=== PATIENT | female | born 1995 | race Caucasian/White ===

== ENCOUNTER 2016-08-12 16:54 | Emergency (ER) | payer OTHER ==
[2016-08-12 17:09] VITALS: BP 107/66
--- NOTE | 2016-08-12 18:09 | UC ---
Throat Pain/Nasal Leo HPI - HPI Summary HPI Summary: 3 day history of malaise, myalgias, fatigue. Has been spending her days in bed, with increasing cough for the past 2 days. No chest pain, chest feels tight. Has used an inhaler in the past. Smokes 1/2 ppd. - History of Current Complaint Chief Complaint: UCGeneralIllness Stated Complaint: HEADACHE/BODY ACHES/COUGH Time Seen by Provider: 08/12/16 17:47 Hx Obtained From: Patient Hx Last Menstrual Period: 3 weeks ago, nexplanon ?: No Onset/Duration: Sudden Onset, Lasting Days - 3 Pain Intensity: 8 Pain Scale Used: 0-10 Numeric Cough: Nonproductive Associated Signs & Symptoms: Positive: Hoarseness, Sinus Discomfort Related History: Smoking - Epiglottits Risk Factors Epiglottis Risk Factors: Negative - Allergies/Home Medications Allergies/Adverse Reactions: Allergies Allergy/AdvReac Type Severity Reaction Status Date / Time Shellfish-derived Products Allergy Severe SOB, DIZZY Verified 08/12/16 17:09 Adhesive Tape Allergy Intermediate SKIN SWELLS Verified 08/12/16 17:09 Latex Allergy Intermediate SWELLING , Verified 08/12/16 17:09 REDNESS AND BURNING Azithromycin [From Zithromax] Allergy Vomiting Verified 08/12/16 17:09 Home Medications: Home Medications Cetirizine* [ZyrTEC 10 MG TAB*] 10 mg PO DAILY 08/12/16 [History Confirmed 08/12] Etonogestrel IMPLANT(NF) [Implanon (NF)] 68 mg SC ONCE 08/12/16 [History Confirmed 08/12/16] PMH/Surg Hx/FS Hx/Imm Hx - Additional Past Medical History Additional PMH: chronic PID, aura migraines. Endocrine History Of: Denies: Diabetes Cardiovascular History Of: Denies: Cardiac Disorders Respiratory History Of: Reports: Asthma - exercised induced - Surgical History Surgical History: Yes Surgery Procedure, Year, and Place: GASTROSCOPE, COLONOSCOPY AFTER HAVING C- DIFF. 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 Lives: With Family - 2 daughters Alcohol Use: None Substance Use Type: None Smoking Status (MU): Heavy Every Day Tobacco Smoker Type: Cigarettes Amount Used/How Often: 1/2 PPD Length of Time of Smoking/Using Tobacco: age 11 Have You Smoked in the Last Year: Yes Household Exposure Type: Cigarettes Review of Systems Constitutional: Fatigue Skin: Negative Eyes: Negative ENT: Negative Respiratory: Cough Cardiovascular: Negative Gastrointestinal: Negative Genitourinary: Negative Motor: Negative Neurovascular: Negative Musculoskeletal: Myalgia Neurological: Headache - This headache is not typical of her migraines. Psychological: Negative All Other Systems Reviewed And Are Negative: Yes Physical Exam Triage Information Reviewed: Yes Appearance: Ill-Appearing, Pain Distress - mild Vital Signs: Initial Vital Signs Temp 99.3 F 08/12/16 17:05 Pulse 99 08/12/16 17:05 Resp 16 08/12/16 17:05 BP 107/66 08/12/16 17:05 Pulse Ox 100 08/12/16 17:05 Vital Signs Reviewed: Yes Eyes: Positive: Conjunctiva Clear, Other: - RO ENT: Positive: Pharynx normal, Pharyngeal erythema, TM dull - bilateral serous fluid. Dental Exam: Normal Neck: Positive: Supple, Nontender, No Lymphadenopathy Respiratory: Positive: Lungs clear, Normal breath sounds Cardiovascular: Positive: RRR, No Murmur Abdomen Description: Positive: Nontender, No Organomegaly Musculoskeletal Exam: Normal Neurological: Positive: Alert, Muscle Tone Normal Psychological Exam: Normal Skin Exam: Normal Throat Pain/Nasal Course/Dx - Course Course Of Treatment: augmentin for sinusitis. - Differential Dx/Diagnosis Differential Diagnosis/HQI/PQRI: Laryngitis, Pharyngitis, Sinusitis, Tonsillitis Provider Diagnoses: sinusitis Discharge - Discharge Plan Condition: Stable Disposition: HOME Prescriptions: Albuterol HFA INHALER* [Ventolin HFA Inhaler*] 2 puff INH Q4H PRN #1 mdi PRN Reason: Wheezing Amoxicillin/Clavulanate TAB* [Augmentin TAB 875*] 875 mg PO BID #20 tab Additional Instructions: continue use of ibuprofen as needed for headache. Hot compresses to the sinuses might help with the facial pain.
== END 2016-08-12 18:40 | disposition home or self-care (01) ==
LOC: UCCORT 16:54
DX: J32.9 Chronic sinusitis, unspecified (principal); J45.990 Exercise induced bronchospasm; Z88.1 Allergy status to other antibiotic agents; F17.210 Nicotine dependence, cigarettes, uncomplicated
CPT/HCPCS: 99212; G0463

== ENCOUNTER 2016-10-31 15:21 | Emergency (ER) | payer OTHER ==
[2016-10-31 15:54] VITALS: BP 114/67
[2016-10-31] MEDS ORDERED: Ibuprofen TAB* 600 MG PO ONE (16:12)
--- NOTE | 2016-10-31 16:20 | UC ---
Ear Complaint HPI - HPI Summary HPI Summary: Has been having lots of URI/allergy symptoms in the last 2-3 days, had to double up on her cetirizine last night and congestion improved. Since this morning is feeling lots of fluid and pressure in L ear, some in R ear, pain is getting more intense. Has polyps in sinuses, [facility] - History of Current Complaint Chief Complaint: UCEar Stated Complaint: BILATERAL EAR COMPLAINT Time Seen by Provider: 10/31/16 15:51 Hx Obtained From: Patient Hx Last Menstrual Period: 10/25/16 ?: No Onset/Duration: Gradual Onset, Lasting Hours Severity Initially: Mild Severity Currently: Moderate Associated Signs/Symptoms: Positive: Hearing Loss, URI Symptoms - Allergies/Home Medications Allergies/Adverse Reactions: Allergies Allergy/AdvReac Type Severity Reaction Status Date / Time Shellfish-derived Products Allergy Severe SOB, DIZZY Verified 10/31/16 15:56 Adhesive Tape Allergy Intermediate SKIN SWELLS Verified 10/31/16 15:56 Latex Allergy Intermediate SWELLING , Verified 10/31/16 15:56 REDNESS AND BURNING Azithromycin [From Zithromax] Allergy Vomiting Verified 10/31/16 15:56 Home Medications: Home Medications Acetaminophen TAB* [Tylenol TAB*] 650 mg PO Q4H PRN 10/31/16 [History Confirmed 10/31/16] Cetirizine* [ZyrTEC 10 MG TAB*] 10 mg PO BID 10/31/16 [History Confirmed ] PMH/Surg Hx/FS Hx/Imm Hx - Additional Past Medical History Additional PMH: Had sepsis followed by [id number] c-diff in 2012 Respiratory History: Asthma Psychological History: Anxiety, Depression - Surgical History Surgical History: Yes Surgery Procedure, Year, and Place: GASTROSCOPE, COLONOSCOPY AFTER HAVING C- DIFF. - Family History Known Family History: Positive: Diabetes, Other - maternal aunt with breast cancer, mother with benign meningioma Family History: no known family history of cardio vascular disorders - Social History Lives: With Family Alcohol Use: None Substance Use Type: None Smoking Status (MU): Heavy Every Day Tobacco Smoker Type: Cigarettes Amount Used/How Often: 1/2 PPD Length of Time of Smoking/Using Tobacco: age 11 Have You Smoked in the Last Year: Yes Household Exposure Type: Cigarettes Review of Systems Constitutional: Negative Skin: Negative Eyes: Negative ENT: Ear Ache, Nasal Discharge Respiratory: Negative Cardiovascular: Negative Gastrointestinal: Negative Genitourinary: Negative Motor: Negative Neurovascular: Negative Musculoskeletal: Negative Neurological: Negative Psychological: Negative All Other Systems Reviewed And Are Negative: Yes Physical Exam Triage Information Reviewed: Yes Appearance: Well-Appearing, No Pain Distress, Well-Nourished Vital Signs: Initial Vital Signs Temp 99.1 F 10/31/16 15:49 Pulse 83 10/31/16 15:49 Resp 16 10/31/16 15:49 BP 114/67 10/31/16 15:49 Pulse Ox 98 10/31/16 15:49 Vital Signs Reviewed: Yes Eye Exam: Normal Eyes: Positive: Conjunctiva Clear ENT: Positive: Hearing grossly normal, Pharynx normal, Nasal congestion, TM dull - L, TM red - L Dental Exam: Normal Neck exam: Normal Neck: Positive: Supple, Nontender, No Lymphadenopathy Respiratory Exam: Normal Respiratory: Positive: Chest non-tender, Lungs clear, Normal breath sounds, No respiratory distress, No accessory muscle use Cardiovascular Exam: Normal Cardiovascular: Positive: RRR, No Murmur Musculoskeletal Exam: Normal Neurological Exam: Normal Neurological: Positive: Alert Psychological Exam: Normal Skin Exam: Normal Ear Complaint Course/Dx - Differential Dx/Diagnosis Provider Diagnoses: L ear AOM Discharge - Discharge Plan Condition: Stable Disposition: HOME Prescriptions: Amoxicillin PO (*) [Amoxicillin 875 MG (*)] 875 mg PO BID #10 tab Patient Education Materials: Otitis Media (ED) Referrals: Albert Connelly MD [Primary Care Provider] - Additional Instructions: Call or come back if you develop fever, worsening pain, or drainage from the ear.
== END 2016-10-31 16:23 | disposition home or self-care (01) ==
LOC: UCCORT 15:21
DX: H66.92 Otitis media, unspecified, left ear (principal); F17.210 Nicotine dependence, cigarettes, uncomplicated
CPT/HCPCS: 99212; A9270-GY; G0463

== ENCOUNTER 2016-11-06 21:00 | Emergency (ER) | payer OTHER ==
[2016-11-06 21:11] VITALS: BP 108/68
[2016-11-06] MEDS ORDERED: Amoxicillin/Clavulanate TAB* 875 MG PO ONE (21:33)
--- NOTE | 2016-11-06 22:46 | UC ---
David Bruce Rebecca, scribed for Jam Resendiz MD on 11/06/16 at 2125 . Respiratory Complaint HPI - HPI Summary HPI Summary: Pt is a 21 y/o F who presents to [facility] c/o L ear pressure and tinnitus, myalgias , nasal drainage and small white spots on the throat. Characterizes nasal drainage as "chunks." Reports she is concerned about rupture of the L TM as she had fluid and a layer of "pink skin" come out. Sx aggravated and alleviated by nothing, unchanged by decongestants and steroid nasal spray. Denies abdominal pain and nausea. She was seen 10/31 and given an Rx for Amoxicillin for 5 day which are not improving sx. - History of Current Complaint Chief Complaint: UCRespiratory Stated Complaint: RE-CK SINUSES,THROAT Time Seen by Provider: 11/06/16 21:14 Hx Obtained From: Patient Hx Last Menstrual Period: 03/16/16 Onset/Duration: Still Present Severity Currently: Mild Pain Intensity: 3 Pain Scale Used: 0-10 Numeric Aggravating Factors: Nothing Alleviating Factors: Nothing - Allergies/Home Medications Allergies/Adverse Reactions: Allergies Allergy/AdvReac Type Severity Reaction Status Date / Time Shellfish-derived Products Allergy Severe SOB, DIZZY Verified 10/31/16 15:56 Adhesive Tape Allergy Intermediate SKIN SWELLS Verified 10/31/16 15:56 Latex Allergy Intermediate SWELLING , Verified 10/31/16 15:56 REDNESS AND BURNING Azithromycin [From Zithromax] Allergy Vomiting Verified 10/31/16 15:56 Shellfish Allergy Allergy Wheezing Verified 03/27/16 11:02 PMH/Surg Hx/FS Hx/Imm Hx Respiratory History: Other Other Respiratory History: No Hx asthma GI/ History: Other Other GI/ History: C. Diff - Surgical History Surgical History: Yes Surgery Procedure, Year, and Place: 15 GI bx r/t c.diff - Family History Known Family History: Positive: Other - postive FMH of contusions Negative: Cardiac Disease, Hypertension, Diabetes Family History: no known family history of cardio vascular disorders - Social History Alcohol Use: Occasionally Substance Use Type: None Smoking Status (MU): Light Every Day Tobacco Smoker Type: Cigarettes Amount Used/How Often: 3packs per week Length of Time of Smoking/Using Tobacco: age 11 Have You Smoked in the Last Year: Yes Household Exposure Type: Cigarettes Review of Systems Constitutional: Negative Skin: Negative Eyes: Negative ENT: Ear Ache - L ear pressure, Nasal Discharge - "Chunks", Other - L ear tinnitus; white spots on throat Respiratory: Negative Cardiovascular: Negative Gastrointestinal: Negative Genitourinary: Negative Motor: Negative Neurovascular: Negative Musculoskeletal: Myalgia Neurological: Negative Psychological: Negative All Other Systems Reviewed And Are Negative: Yes - Comments Additional Review of Systems Comments: POSITIVE: L ear pressure and tinnitus, myalgias, nasal drainage and small white spots on the throat. NEGATIVE: Abdominal pain and nausea. Physical Exam Triage Information Reviewed: Yes Vital Signs: Initial Vital Signs Temp 98.9 F 11/06/16 21:06 Pulse 101 11/06/16 21:06 Resp 14 11/06/16 21:06 BP 108/68 11/06/16 21:06 Pulse Ox 98 11/06/16 21:06 Vital Signs Reviewed: Yes - Additional Comments The patient is well-nourished in no acute distress and in no acute pain. The skin is warm and dry and skin color reflects adequate perfusion. HEENT: Tenderness ove rthe L frontal and L maxillary sinuses. The pupils are equal and reactive. The conjunctivae are clear and without drainage. Nares are patent and without drainage. Mouth reveals moist mucous membranes and the throat is without erythema and exudate. The external ears are intact. The left TM is erythematous and inflamed. L trachal tenderness in the ear. Little bit of tenderness over the maxillary. No swelling in the ear. No drainage in the ear canal. No otitis externa. She has boggy looking turbanates in the nose. Neck is supple with full range of motion, There are no carotid bruits. There is no neck vein distension. She has dome anterior and posterior chain adenopathy. Respiratory: Chest is non-tender. Lungs are clear to auscultation and breath sounds are symmetrical and equal. Cardiovascular: Hear is regular rate and rhythm. There is no murmur or rub auscultated. There is no peripheral edema and pulses are symmetrical and equal. Neurological: Patient is alert and oriented to person, place and time. The patient has symmetrical motor strength in all four extremities. Cranial nerves are grossly intact. Deep tendon reflexes are symmetrical and equal in all four extremities. Psychiatric: The patient has an appropriate affect and does not exhibit any anxiety or depression. Diagnostic Evaluation - Laboratory O2 Sat by Pulse Oximetry: 98 Respiratory Course/Dx - Course Course Of Treatment: Pt is a 21 y/o F who presents to [facility] c/o L ear pressure and tinnitus, myalgias, nasal drainage and small white spots on the throat. Characterizes nasal drainage as "chunks." Sx unchanged by decongestants and steroid nasal spray. Denies abdominal pain and nausea. She was seen 10/31 and given an Rx for Amoxicillin for 5 day which are not improving sx. Group A Strep rapid negative. She will be D/C to home with Dx of acute otitis media, Abx failure; left Sinusitis and pharyngitis with Rx for Augmentin. - Differential Dx/Diagnosis Provider Diagnoses: Acute otitis media, Abx failure. Left Sinusitis. Pharyngitis Discharge - Discharge Plan Condition: Stable Disposition: HOME Prescriptions: Amoxicillin/Clavulanate TAB* [Augmentin TAB 875*] 875 mg PO BID #20 tab Patient Education Materials: Otitis Media (ED), Sinusitis (ED), Pharyngitis (ED ) Referrals: Albert Connelly MD [Primary Care Provider] - 3 Days The documentation as recorded by the David españa Rebecca accurately reflects the service I personally performed and the decisions made by , Jam Resendiz MD.
== END 2016-11-06 22:18 | disposition home or self-care (01) ==
LOC: UCCORT 21:00
DX: H66.92 Otitis media, unspecified, left ear (principal); J32.9 Chronic sinusitis, unspecified; J02.9 Acute pharyngitis, unspecified; F17.210 Nicotine dependence, cigarettes, uncomplicated
CPT/HCPCS: 87651; 99212; A9270-GY; G0463

== ENCOUNTER 2016-11-17 10:42 | Emergency (ER) | payer OTHER ==
--- NOTE | 2016-11-17 11:44 | UC ---
Throat Pain/Nasal Leo HPI - HPI Summary HPI Summary: pt c/o sore throat X 3 weeks. Pt is currently taking Augmentin for previously diagnosed sinus infection and bilateral ear infections - History of Current Complaint Stated Complaint: SORE THROAT Time Seen by Provider: 11/17/16 11:22 Hx Obtained From: Patient Hx Last Menstrual Period: 10/28/16 ?: No Onset/Duration: Gradual Onset, Lasting Weeks - 2, Still Present Severity: Moderate Associated Signs & Symptoms: Positive: Dysphagia, Fever - Epiglottits Risk Factors Epiglottis Risk Factors: Negative - Allergies/Home Medications Allergies/Adverse Reactions: Allergies Allergy/AdvReac Type Severity Reaction Status Date / Time Shellfish-derived Products Allergy Severe SOB, DIZZY Verified 11/17/16 11:35 Adhesive Tape Allergy Intermediate SKIN SWELLS Verified 11/17/16 11:35 Latex Allergy Intermediate SWELLING , Verified 11/17/16 11:35 REDNESS AND BURNING Azithromycin [From Zithromax] Allergy Vomiting Verified 11/17/16 11:35 Shellfish Allergy Allergy Wheezing Verified 11/17/16 11:35 PMH/Surg Hx/FS Hx/Imm Hx Previously Healthy: Yes - Surgical History Surgical History: Yes Surgery Procedure, Year, and Place: 15 GI bx r/t c.diff - Family History Known Family History: Positive: Other - postive FMH of contusions Negative: Cardiac Disease, Hypertension, Diabetes Family History: no known family history of cardio vascular disorders - Social History Occupation: Employed Full-time Lives: With Family Alcohol Use: None Substance Use Type: None Smoking Status (MU): Light Every Day Tobacco Smoker Type: Cigarettes Amount Used/How Often: 3packs per week Length of Time of Smoking/Using Tobacco: age 11 Have You Smoked in the Last Year: Yes Household Exposure Type: Cigarettes Review of Systems Constitutional: Fever, Chills, Fatigue Skin: Negative Eyes: Negative ENT: Sore Throat Respiratory: Negative Cardiovascular: Negative Gastrointestinal: Negative Genitourinary: Negative Motor: Negative Neurovascular: Negative Musculoskeletal: Negative Neurological: Negative Psychological: Negative All Other Systems Reviewed And Are Negative: Yes Physical Exam Triage Information Reviewed: Yes Appearance: Ill-Appearing Vital Signs: Initial Vital Signs Temp 100.9 F 11/17/16 11:31 Pulse 98 11/17/16 11:31 Resp 16 11/17/16 11:31 BP 94/62 11/17/16 11:31 Pulse Ox 99 11/17/16 11:31 Vital Signs Reviewed: Yes Eye Exam: Normal ENT Exam: Other ENT: Positive: TMs normal - right, TM bulging - Left TM, TM red - left TM, Tonsillar swelling, Tonsillar exudate Dental Exam: Normal Neck: Positive: Enlarged Nodes @ - bialteral sbmaxillary Respiratory Exam: Normal Cardiovascular Exam: Normal Abdominal Exam: Normal Musculoskeletal Exam: Normal Neurological Exam: Normal Psychological Exam: Normal Skin Exam: Normal Throat Pain/Nasal Course/Dx - Differential Dx/Diagnosis Differential Diagnosis/HQI/PQRI: Mononucleosis, Pharyngitis, Tonsillitis Provider Diagnoses: tonsillitis Discharge - Discharge Plan Condition: Stable Disposition: HOME Prescriptions: DOXYcycline CAP(*) [DOXYcycline 100MG CAP(*)] 100 mg PO BID #20 cap Lidocaine 2% VISCOUS* [Xylocaine 2% Viscous*] 15 ml SWISH SWAL Q8H PRN #1 btl PRN Reason: Pain Patient Education Materials: Tonsillitis (ED) Referrals: Albert Connelly MD [Primary Care Provider] - As Soon As Possible
[2016-11-17 11:53] VITALS: BP 94/62
[2016-11-17 18:14] LABS: EBV Response NO
[2016-11-17 18:19] LABS: Hematocrit 39 % (35-47); Hemoglobin 12.6 g/dl (12.0-16.0); Mean Corpuscular HGB Conc 33 g/dl (31-36); Mean Corpuscular Hemoglobin 27 pg (27-31); Mean Corpuscular Volume 84 fL (80-97); Mean Platelet Volume 9 um3 (7.4-10.4); Red Blood Count 4.61 10^6/ul (4.0-5.4); Red Cell Distribution Width 15 % (10.5-15); White Blood Count 9.3 10^3/ul (3.5-10.8)
[2016-11-17 18:26] LABS: Add Diff/Slide Review? Manual Diff Added; Comments Flag Yes
[2016-11-17 18:48] LABS: Mono Internal Control QC Line Present
[2016-11-17 18:49] LABS: Manual Entry Verification MER0007
[2016-11-17 19:59] LABS: Neutrophil % 89 % (38-83); Reactive Lymph % 2 % (0-6)
[2016-11-17 20:00] LABS: RBC Morphology Normal (Normal)
== END 2016-11-17 12:06 | disposition home or self-care (01) ==
LOC: UCCORT 10:42
DX: J03.90 Acute tonsillitis, unspecified (principal); Z91.040 Latex allergy status; Z88.1 Allergy status to other antibiotic agents; Z91.013 Allergy to seafood; Z91.048 Other nonmedicinal substance allergy status; F17.210 Nicotine dependence, cigarettes, uncomplicated
CPT/HCPCS: 36415; 85025; 85060; 86308; 87651; 99212; G0463

== ENCOUNTER 2017-03-10 15:38 | Emergency (ER) | payer OTHER ==
--- NOTE | 2017-03-10 15:59 | UC ---
Throat Pain/Nasal Leo HPI - HPI Summary HPI Summary: 21 year old female presents with complains of severe sinus congestion and left ear drainage. - History of Current Complaint Stated Complaint: SINUS/EAR/BODY ACHES Time Seen by Provider: 03/10/17 15:58 Hx Obtained From: Patient Hx Last Menstrual Period: 10/28/16 Onset/Duration: Sudden Onset Severity: Moderate - Allergies/Home Medications Allergies/Adverse Reactions: Allergies Allergy/AdvReac Type Severity Reaction Status Date / Time Shellfish-derived Products Allergy Severe SOB, DIZZY Verified 03/10/17 16:05 Adhesive Tape Allergy Intermediate SKIN SWELLS Verified 03/10/17 16:05 Latex Allergy Intermediate SWELLING , Verified 03/10/17 16:05 REDNESS AND BURNING Azithromycin [From Zithromax] Allergy Vomiting Verified 03/10/17 16:05 Shellfish Allergy Allergy Wheezing Verified 03/10/17 16:05 Home Medications: Home Medications Ibuprofen TAB* [Advil TAB*] 600 mg PO ONCE 03/10/17 [History Confirmed 03/10/17] [id number] [Sudafed PE Pressure+Pain+ 5-325-200 mg] 2 tab PO ONCE 03/10/17 [History Confirmed 03/10/17] PMH/Surg Hx/FS Hx/Imm Hx Previously Healthy: Yes - Surgical History Surgical History: Yes Surgery Procedure, Year, and Place: 15 GI bx r/t c.diff - Family History Known Family History: Positive: None, Unknown, Other - postive FMH of contusions Negative: Cardiac Disease, Hypertension, Diabetes Family History: no known family history of cardio vascular disorders - Social History Alcohol Use: None Substance Use Type: None Smoking Status (MU): Light Every Day Tobacco Smoker Type: Cigarettes Amount Used/How Often: 3packs per week Length of Time of Smoking/Using Tobacco: age 11 Have You Smoked in the Last Year: Yes Household Exposure Type: Cigarettes Review of Systems Constitutional: Negative Skin: Negative Eyes: Negative ENT: Ear Ache, Nasal Discharge, Sinus Congestion, Sinus Pain/Tenderness Respiratory: Negative Cardiovascular: Negative Gastrointestinal: Negative Genitourinary: Negative Motor: Negative Neurovascular: Negative Musculoskeletal: Negative Neurological: Negative Psychological: Negative All Other Systems Reviewed And Are Negative: Yes Physical Exam Triage Information Reviewed: Yes Vital Signs Reviewed: Yes Eye Exam: Normal ENT: Positive: Nasal congestion, Nasal drainage, Sinus tenderness, Other - left ear drainage Dental Exam: Normal Neck exam: Normal Neck: Positive: 1 Respiratory Exam: Normal Cardiovascular Exam: Normal Abdominal Exam: Normal Musculoskeletal Exam: Normal Neurological Exam: Normal Psychological Exam: Normal Skin Exam: Normal Throat Pain/Nasal Course/Dx - Differential Dx/Diagnosis Provider Diagnoses: sinusitis. left ear drainage Discharge - Discharge Plan Condition: Stable Disposition: HOME Prescriptions: Amoxicillin/Clavulanate TAB* [Augmentin TAB 875*] 875 mg PO BID #20 tab Ciproflox/Dexameth OTIC.SUSP* [Ciprodex OTIC.SUSP*] 1 drop RIGHT EAR BID #1 bottle Methylprednisolone [Medrol Dosepak 4 MG*] 4 mg PO .SEE DANIEL INSTRUCTION #21 tab Patient Education Materials: Sinusitis (ED) Referrals: William Morton MD [Medical Doctor] - Albert Connelly MD [Primary Care Provider] -
[2017-03-10 16:05] VITALS: BP 124/66
== END 2017-03-10 16:34 | disposition home or self-care (01) ==
LOC: UCCORT 15:38
DX: J32.9 Chronic sinusitis, unspecified (principal); H92.12 Otorrhea, left ear; Z88.1 Allergy status to other antibiotic agents; Z91.040 Latex allergy status; Z91.013 Allergy to seafood; Z91.048 Other nonmedicinal substance allergy status; F17.210 Nicotine dependence, cigarettes, uncomplicated
CPT/HCPCS: 87070; 87077; 87205; 87640; 87641; 99212; G0463

== ENCOUNTER 2017-04-10 13:02 | Emergency (ER) | payer OTHER ==
[2017-04-10 14:18] VITALS: BP 107/85
--- NOTE | 2017-04-10 14:28 | UC ---
Eye Complaint HPI - HPI Summary HPI Summary: had uri--now has purulent drainage from both eyes and injected conjunctiva - History of Current Complaint Chief Complaint: UCEye Stated Complaint: POSS. PINK EYE Time Seen by Provider: 04/10/17 14:06 Hx Obtained From: Patient Hx Last Menstrual Period: 03/22/2017 ?: No Onset/Duration: Sudden Onset, Lasting Days, Still Present Timing: Constant Severity Initially: Mild Severity Currently: Mild Location of Injury: Conjunctiva - ou Aggravating Factor(s): Nothing Alleviating Factor(s): Nothing Associated Signs And Symptoms: Positive: Drainage (Purulent) - ou - Allergies/Home Medications Allergies/Adverse Reactions: Allergies Allergy/AdvReac Type Severity Reaction Status Date / Time Shellfish-derived Products Allergy Severe SOB, DIZZY Verified 04/10/17 14:18 Adhesive Tape Allergy Intermediate SKIN SWELLS Verified 04/10/17 14:18 Latex Allergy Intermediate SWELLING , Verified 04/10/17 14:18 REDNESS AND BURNING Azithromycin [From Zithromax] Allergy Vomiting Verified 03/10/17 16:05 Shellfish Allergy Allergy Wheezing Verified 04/10/17 14:18 PMH/Surg Hx/FS Hx/Imm Hx Previously Healthy: Yes - Surgical History Surgical History: Yes Surgery Procedure, Year, and Place: 15 GI bx r/t c.diff - Family History Known Family History: Positive: None, Unknown, Other - postive FMH of contusions Negative: Cardiac Disease, Hypertension, Diabetes Family History: no known family history of cardio vascular disorders - Social History Occupation: Employed Full-time Lives: With Family Alcohol Use: None Substance Use Type: None Smoking Status (MU): Light Every Day Tobacco Smoker Type: Cigarettes Amount Used/How Often: 3packs per week Length of Time of Smoking/Using Tobacco: age 11 Have You Smoked in the Last Year: Yes Household Exposure Type: Cigarettes - Immunization History Most Recent Influenza Vaccination: none Review of Systems Constitutional: Negative Skin: Negative Eyes: Drainage - ou, Eye Redness - ou ENT: Negative Respiratory: Negative Cardiovascular: Negative Gastrointestinal: Negative Genitourinary: Negative Motor: Negative Neurovascular: Negative Musculoskeletal: Negative Neurological: Negative Psychological: Negative Is Patient Immunocompromised?: No All Other Systems Reviewed And Are Negative: Yes Physical Exam Triage Information Reviewed: Yes Appearance: Well-Appearing, No Pain Distress, Well-Nourished Vital Signs: Initial Vital Signs Temp 98.1 F 04/10/17 14:12 Pulse 68 04/10/17 14:12 Resp 18 04/10/17 14:12 BP 107/85 04/10/17 14:12 Pulse Ox 100 04/10/17 14:12 Vital Signs Reviewed: Yes Eye Exam: Normal Eyes: Positive: Conjunctiva Inflamed - ou, Discharge - ou ENT Exam: Normal ENT: Positive: Normal ENT inspection, Hearing grossly normal, TMs normal. Negative: Nasal congestion, Tonsillar swelling, Tonsillar exudate, Trismus, Muffled voice, Hoarse voice, Dental tenderness, Sinus tenderness Dental Exam: Normal Neck exam: Normal Neck: Positive: Supple, Nontender Respiratory Exam: Normal Respiratory: Positive: Chest non-tender, Lungs clear, No accessory muscle use Cardiovascular Exam: Normal Cardiovascular: Positive: RRR, Pulses Normal, Brisk Capillary Refill Musculoskeletal Exam: Normal Musculoskeletal: Positive: Strength Intact, ROM Intact, No Edema Neurological Exam: Normal Neurological: Positive: Alert, Muscle Tone Normal Psychological Exam: Normal Skin Exam: Normal Eye Complaint Course/Dx - Course Course Of Treatment: polytrim, warm soaks, follow with pcpprn - Differential Dx/Diagnosis Provider Diagnoses: ou conjuctivitis Discharge - Discharge Plan Condition: Stable Disposition: HOME Prescriptions: Polymyx/Trimethoprim OPTH* [Polytrim OPHTH*] 1 drop BOTH EYES Q4H #1 btl Patient Education Materials: How to Use Eye Drops (ED), Conjunctivitis (ED) Referrals: Albert Connelly MD [Primary Care Provider] - If Needed
== END 2017-04-10 14:45 | disposition home or self-care (01) ==
LOC: UCCORT 13:02
DX: H10.9 Unspecified conjunctivitis (principal); Z72.0 Tobacco use
CPT/HCPCS: 99211; G0463

== ENCOUNTER 2017-08-28 12:20 | Emergency (ER) | payer OTHER ==
[2017-08-28 13:15] VITALS: BP 126/80
--- NOTE | 2017-08-28 14:04 | UC ---
Complaint Female HPI - HPI Summary HPI Summary: Pt c/o of nausea and vomiting X 4 weeks. Pt had positive test at home and has been "spotting" X 2 days that has since resolve. Pt had implanon removed in January 2017 and is actively trying to get . - History Of Current Complaint Chief Complaint: UCGeneralIllness Stated Complaint: CRAMPS DURING Time Seen by Provider: 08/28/17 13:04 Hx Obtained From: Patient Hx Last Menstrual Period: 07/15/17 ?: Yes - a per home test Onset/Duration: Sudden Onset, Lasting Weeks, Still Present Timing: Intermittent Severity Initially: Mild Severity Currently: None Pain Intensity: 0 Aggravating Factor(s): Nothing Alleviating Factor(s): Nothing Associated Signs And Symptoms: Positive: Vaginal Bleeding/Discharge - Risk Factors Ectopic Risk Factor: Negative Ovarian Torsion Risk Factor: Reproductive Age - Allergies/Home Medications Allergies/Adverse Reactions: Allergies Allergy/AdvReac Type Severity Reaction Status Date / Time Adhesive Tape Allergy Intermediate SKIN SWELLS Verified 08/28/17 13:06 azithromycin Allergy Vomiting Verified 08/28/17 13:06 latex Allergy Swelling Verified 08/28/17 13:06 shellfish derived Allergy Wheezing Verified 08/28/17 13:06 Home Medications: Home Medications Melatonin/Pyridoxine HCl (B6) [Melatonin 10 mg Tablet] 1 tab PO BEDTIME [History Confirmed 08/28/17] Sertraline* [Zoloft*] 200 mg PO DAILY 08/28/17 [History Confirmed 08/28/17] PMH/Surg Hx/FS Hx/Imm Hx Previously Healthy: Yes - Surgical History Surgical History: Yes Surgery Procedure, Year, and Place: 15 GI bx r/t c.diff - Family History Known Family History: Positive: None, Unknown, Other - postive FMH of contusions Negative: Cardiac Disease, Hypertension, Diabetes Family History: no known family history of cardio vascular disorders - Social History Occupation: Employed Full-time Lives: With Family Alcohol Use: None Substance Use Type: None Smoking Status (MU): Heavy Every Day Tobacco Smoker Type: Cigarettes Amount Used/How Often: 1/2 PPD Length of Time of Smoking/Using Tobacco: age 11 Have You Smoked in the Last Year: Yes Household Exposure Type: Cigarettes - Immunization History Most Recent Influenza Vaccination: none Review of Systems Constitutional: Fatigue Skin: Negative Eyes: Negative ENT: Negative Respiratory: Negative Cardiovascular: Negative Gastrointestinal: Vomiting, Nausea Genitourinary: Vaginal/Penile Discharge, Abnormal Bleeding Motor: Negative Neurovascular: Negative Musculoskeletal: Negative Neurological: Negative Psychological: Negative Is Patient Immunocompromised?: No All Other Systems Reviewed And Are Negative: Yes Physical Exam Triage Information Reviewed: Yes Appearance: Well-Appearing Vital Signs: Initial Vital Signs Temp 98.4 F 08/28/17 13:07 Pulse 84 08/28/17 13:07 Resp 18 08/28/17 13:07 BP 126/80 08/28/17 13:07 Pulse Ox 100 08/28/17 13:07 Vital Signs Reviewed: Yes Eye Exam: Normal ENT: Positive: Hearing grossly normal Neck exam: Normal Respiratory: Positive: No respiratory distress Musculoskeletal Exam: Normal Neurological Exam: Normal Psychological Exam: Normal Skin Exam: Normal Diagnostics - Laboratory Diagnostic Studies Completed/Ordered: Urine : negative Complaint Female Dx - Course Course Of Treatment: I discussed with the pt the need to follow up with her PCP and testing manager provider as soon as possible. Pt verbalized understanding and agreed to plan of care. - Differential Dx/Diagnosis Differential Diagnosis/HQI/PQRI: , Urinary Tract Infection Provider Diagnoses: abnormal vaginal bleeding. nausea and vomiting Discharge - Sign-Out/Discharge Documenting (check all that apply): Discharge/Admit/Transfer - Discharge Plan Condition: Stable Disposition: HOME Prescriptions: Metoclopramide TAB* [Reglan TAB*] 5 mg PO Q8H PRN #15 tab PRN Reason: Nausea Patient Education Materials: Dysfunctional Uterine Bleeding (ED), Acute Nausea and Vomiting (ED) Referrals: Albert Connelly MD [Primary Care Provider] - As Soon As Possible - Billing Disposition and Condition Condition: STABLE Disposition: HOME
== END 2017-08-28 14:08 | disposition home or self-care (01) ==
LOC: UCCORT 12:20
DX: N93.9 Abnormal uterine and vaginal bleeding, unspecified (principal); R11.2 Nausea with vomiting, unspecified; Z32.02 Encounter for pregnancy test, result negative; Z88.1 Allergy status to other antibiotic agents; Z91.040 Latex allergy status; Z91.013 Allergy to seafood; Z91.048 Other nonmedicinal substance allergy status; F17.210 Nicotine dependence, cigarettes, uncomplicated
CPT/HCPCS: 36415; 81003; 84702; 87086; 99211; G0463

== ENCOUNTER 2018-01-10 12:02 | Emergency (ER) | payer OTHER ==
[2018-01-10 13:28] VITALS: BP 122/71
--- NOTE | 2018-01-10 13:41 | UC ---
Throat Pain/Nasal Leo HPI - HPI Summary HPI Summary: 22 year old female with history of C diff presents with URI Sx . Cough onset 7 days, colored drainage, and sputum; chills. Has nasal polyps and was advised to get ENT surgery but declined due to anxiety. Has had Sx 7 or more days and Sx not improved and sinus pressure worsened, has had c diff 5 years ago and not since. works at [employer]. not uaing nasal sprays. - History of Current Complaint Chief Complaint: UCRespiratory Stated Complaint: COUGH,CONGESTION Time Seen by Provider: 01/10/18 13:24 Hx Obtained From: Patient Hx Last Menstrual Period: early 01/01 Onset/Duration: Sudden Onset Pain Intensity: 3 Cough: Productive Associated Signs & Symptoms: Positive: Sinus Discomfort, Nasal Discharge - Allergies/Home Medications Allergies/Adverse Reactions: Allergies Allergy/AdvReac Type Severity Reaction Status Date / Time Adhesive Tape Allergy Intermediate SKIN SWELLS Verified 01/10/18 13:29 azithromycin Allergy Vomiting Verified 01/10/18 13:29 latex Allergy Swelling Verified 01/10/18 13:29 shellfish derived Allergy Wheezing Verified 01/10/18 13:29 Home Medications: Home Medications Citalopram TAB* [CeleXA TAB*] 30 mg PO DAILY 01/10/18 [History Confirmed ] D-Methorphan/PE/Acetaminophen [Vicks Dayquil Cold & Flu] 2 cap PO ONCE PRN 01/10 [History Confirmed 01/10/18] clonazePAM TAB(*) [KlonoPIN TAB(*)] 0.5 mg PO TID 01/10/18 [History Confirmed ] clonazePAM [Klonopin] 0.5 mg PO ONCE PRN 01/10/18 [History Confirmed 01/10/18] PMH/Surg Hx/FS Hx/Imm Hx Previously Healthy: Yes Psychological History: Anxiety, Depression - Surgical History Surgical History: Yes Surgery Procedure, Year, and Place: 15 GI bx r/t c.diff - Family History Known Family History: Positive: None, Unknown, Other - postive FMH of contusions Negative: Cardiac Disease, Hypertension, Diabetes Family History: no known family history of cardio vascular disorders - Social History Occupation: Employed Full-time Lives: With Family Alcohol Use: None Substance Use Type: Prescribed Smoking Status (MU): Heavy Every Day Tobacco Smoker Type: Cigarettes Amount Used/How Often: 1/2 PPD Length of Time of Smoking/Using Tobacco: age 11 Have You Smoked in the Last Year: Yes Household Exposure Type: Cigarettes Cessation Counseling: Patient Advised to Stop - Immunization History Most Recent Influenza Vaccination: none Review of Systems Constitutional: Fever, Chills, Fatigue ENT: Sore Throat, Ear Ache, Nasal Discharge, Sinus Congestion, Sinus Pain/ Tenderness Respiratory: Cough Psychological: Anxious Is Patient Immunocompromised?: No All Other Systems Reviewed And Are Negative: Yes Physical Exam Triage Information Reviewed: Yes Appearance: Well-Appearing, No Pain Distress, Well-Nourished Vital Signs: Initial Vital Signs Temp 98.3 F 01/10/18 13:16 Pulse 86 01/10/18 13:16 Resp 18 01/10/18 13:16 BP 122/71 01/10/18 13:16 Pulse Ox 99 01/10/18 13:16 Vital Signs Reviewed: Yes Eye Exam: Normal ENT Exam: Normal ENT: Positive: Nasal congestion, Nasal drainage, TM dull, Sinus tenderness. Negative: TM bulging, TM red, Tonsillar swelling, Tonsillar exudate Dental Exam: Normal Neck exam: Normal Neck: Positive: 1 Respiratory Exam: Normal Respiratory: Positive: Chest non-tender, Lungs clear, Normal breath sounds, No respiratory distress Cardiovascular Exam: Normal Abdominal Exam: Normal Musculoskeletal Exam: Normal Neurological Exam: Normal Psychological Exam: Normal Skin Exam: Normal Throat Pain/Nasal Course/Dx - Course Course Of Treatment: supportive care at this time with OTC meds, flonase and consider Netti Pot. RTO if any concerns. If Sx wprsen or persit start abx and aware of SE like c diff and she will use probiotics if needed. advise to go back to ENT and PCP. - Differential Dx/Diagnosis Differential Diagnosis/HQI/PQRI: Laryngitis, Otitis Media, Pharyngitis, Tonsillitis, URI Provider Diagnoses: Sinusitis Discharge - Sign-Out/Discharge Documenting (check all that apply): Patient Departure All imaging exams completed and their final reports reviewed: No Studies - Discharge Plan Condition: Good Disposition: HOME Prescriptions: Amoxicillin/Clavulanate TAB* [Augmentin TAB 875*] 875 mg PO BID 7 Days #14 tab Fluticasone NASAL SPRAY 50MCG* [Flonase NASAL SPRAY 50MCG*] 2 spray BOTH NARES DAILY #1 btl Patient Education Materials: Sinusitis (ED) Referrals: Albert Connelly MD [Primary Care Provider] - 4 Days Additional Instructions: VIRAL SINUSITIS: IT APPEARS THAT AT THIS TIME YOU HAVE A VIRAL SINUSITIS AND ARE ADVISED TO CONTINUE WITH DECONGESTANTS, FLONASE AND PLEASE ADD THE MONE MED SINUS RINSE / NETTI POT TO YOUR REGIMEN AND IF YOUR SYMPTOMS WORSEN OVER THE NEXT 3-4 DAYS THEN YOU MAY START THE ANTIBIOTICS . please be aware of side effects of antibiotics like c diff. Feel better soon ! - Billing Disposition and Condition Condition: GOOD Disposition: Home
== END 2018-01-10 14:03 | disposition home or self-care (01) ==
LOC: UCCORT 12:02
DX: J32.9 Chronic sinusitis, unspecified (principal); Z88.1 Allergy status to other antibiotic agents; F41.8 Other specified anxiety disorders; F17.210 Nicotine dependence, cigarettes, uncomplicated; Z86.19 Personal history of other infectious and parasitic diseases
CPT/HCPCS: 99211; G0463

== ENCOUNTER 2018-01-29 19:47 | Emergency (ER) | payer OTHER ==
[2018-01-29 20:46] VITALS: BP 109/63
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
== END 2018-01-29 21:15 | disposition home or self-care (01) ==
LOC: UCCORT 19:47
DX: S00.01XA Abrasion of scalp, initial encounter (principal); F31.9 Bipolar disorder, unspecified; F41.9 Anxiety disorder, unspecified; F17.210 Nicotine dependence, cigarettes, uncomplicated; L23.1 Allergic contact dermatitis due to adhesives; W22.09XA Striking against other stationary object, initial encounter; Y92.9 Unspecified place or not applicable; Z91.040 Latex allergy status; Z91.013 Allergy to seafood; Z88.1 Allergy status to other antibiotic agents
CPT/HCPCS: 99212; G0463

== ENCOUNTER 2018-03-08 09:55 | Emergency (ER) | payer SELFPAY ==
--- NOTE | 2018-03-08 10:19 | UC ---
Psychiatric Complaint HPI - HPI Summary HPI Summary: pt c/o severe anxiety and panic attack. states to myself she awoke this way. hx same. reports vomiting all week and abdominal pain during triage. i am unable to get more hx due to pt's condition. 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 Hx Last Menstrual Period: SHE CANT REMEMBER Onset/Duration: Sudden Onset Timing: Constant Aggravating Factor(s): Nothing, Other - boyfriend denies any specific trigger Alleviating Factor(s): Nothing Related History: Positive For: Prior Psychiatric Issues - Allergies/Home Medications Allergies/Adverse Reactions: Allergies Allergy/AdvReac Type Severity Reaction Status Date / Time Adhesive Tape Allergy Intermediate SKIN SWELLS Verified 03/08/18 10:03 azithromycin Allergy Vomiting Verified 03/08/18 10:03 latex Allergy Swelling Verified 03/08/18 10:03 shellfish derived Allergy Wheezing Verified 03/08/18 10:03 Home Medications: Home Medications ARIPiprazole TAB* [Abilify TAB*] 2 mg PO DAILY 03/08/18 [History Confirmed ] PMH/Surg Hx/FS Hx/Imm Hx Psychological History: Anxiety, Other - panic attack, serotonin syndrom - Surgical History Surgical History: Yes Surgery Procedure, Year, and Place: 15 GI bx r/t c.diff - Family History Known Family History: Positive: None, Unknown, Other - postive FMH of contusions Negative: Cardiac Disease, Hypertension, Diabetes Family History: no known family history of cardio vascular disorders - Social History Alcohol Use: None Substance Use Type: Prescribed Smoking Status (MU): Heavy Every Day Tobacco Smoker Type: Cigarettes Amount Used/How Often: 1/2 PPD Length of Time of Smoking/Using Tobacco: age 11 Have You Smoked in the Last Year: Yes Household Exposure Type: Cigarettes - Immunization History Most Recent Influenza Vaccination: none Most Recent Tetanus Shot: AGE 19 Review of Systems All Other Systems Reviewed And Are Negative: No Gastrointestinal: Positive: Abdominal Pain, Vomiting Psychological: Positive: Anxious, Other - panic - Comments Additional Review of Systems Comments: limited by pt conditon , screaming, crying, vomiting and unable to focus/answer questions Physical Exam Triage Information Reviewed: Yes Appearance: Other: - anxious, screaming, crying, seated bent over rocking in chair. Vital Signs: Initial Vital Signs Temp 97.7 F 03/08/18 10:05 Pulse 100 03/08/18 10:05 Resp 20 03/08/18 10:05 BP 125/74 03/08/18 10:05 Pulse Ox 100 03/08/18 10:05 Vital Signs Reviewed: Yes Eyes: Positive: Conjunctiva Clear ENT: Positive: Normal ENT inspection Neck: Positive: Supple, Nontender Respiratory: Positive: Lungs clear, Normal breath sounds Cardiovascular: Positive: RRR, No Murmur Abdomen Description: Positive: Nontender, No Organomegaly, Soft, Other: - vomiting into bucket. Negative: Distended, Guarding Bowel Sounds: Positive: Present Neurological: Positive: Alert Psychological: Positive: Decreased Age Appropriate Behavior - screaming, crying , rocking in chair and unable to focus Skin Exam: Normal Psych Complaint Course/Dx - Course Course Of Treatment: Report given to Dr Carr at [facility], coming via [facility] - Differential Dx/Diagnosis Provider Diagnoses: anxiety, panic, vomiting Discharge - Sign-Out/Discharge Documenting (check all that apply): Patient Departure All imaging exams completed and their final reports reviewed: No Studies - Discharge Plan Condition: Stable Disposition: TRANS HIGHER LVL OF CARE FAC Referrals: Albert Connelly MD [Primary Care Provider] - - Billing Disposition and Condition Condition: STABLE Disposition: Trans Higher Lvl of Care Fac - Attestation Statements Provider Attestation: Per institutional requirements, I have reviewed the chart, however, I was not consulted specifically or made aware of this patient by the midlevel provider. I did not personally evaluate, interact with , or disposition this patient.
[2018-03-08 10:37] VITALS: BP 102/77
== END 2018-03-08 10:36 | disposition short-term general hospital (02) ==
LOC: UCCORT 09:55
DX: F41.0 Panic disorder [episodic paroxysmal anxiety] (principal); R11.10 Vomiting, unspecified; R10.9 Unspecified abdominal pain; F17.210 Nicotine dependence, cigarettes, uncomplicated; Z91.09 Other allergy status, other than to drugs and biological substances; Z88.1 Allergy status to other antibiotic agents; Z91.040 Latex allergy status; Z91.013 Allergy to seafood; Z79.899 Other long term (current) drug therapy
CPT/HCPCS: 99215; G0463

== ENCOUNTER 2018-03-30 11:03 | Emergency (ER) | payer OTHER ==
[2018-03-30 11:28] VITALS: BP 102/68
--- NOTE | 2018-03-30 11:58 | UC ---
Throat Pain/Nasal Leo HPI - HPI Summary HPI Summary: 22-year-old female presents with one-week history of maxillary sinus pain, nasal congestion, and sore throat. States over past 2 days she has developed greenish nasal discharge that is occasionally blood-tinged. Last night had chills, night sweats, and generalized myalgias. No known fever. Denies ear pain , cough, chest pain, shortness of breath, abdominal pain, nausea, or vomiting. - History of Current Complaint Chief Complaint: UCGeneralIllness Stated Complaint: SINUS COMPLAINT,LEFT ARM TINGLING Time Seen by Provider: 03/30/18 11:54 Hx Obtained From: Patient Hx Last Menstrual Period: 03/25/18 Pain Intensity: 4 - Allergies/Home Medications Allergies/Adverse Reactions: Allergies Allergy/AdvReac Type Severity Reaction Status Date / Time Adhesive Tape Allergy Intermediate SKIN SWELLS Verified 03/30/18 11:28 azithromycin Allergy Vomiting Verified 03/30/18 11:28 latex Allergy Swelling Verified 03/30/18 11:28 shellfish derived Allergy Wheezing Verified 03/30/18 11:28 Home Medications: Home Medications QUEtiapine TAB* [Seroquel 25 MG TAB*] 12.5 mg PO BEDTIME 03/30/18 [History Confirmed 03/30/18] PMH/Surg Hx/FS Hx/Imm Hx Psychological History: Anxiety, Depression, Other - ADHD - Surgical History Surgical History: Yes Surgery Procedure, Year, and Place: 15 GI bx r/t c.diff - Family History Known Family History: Positive: Non-Contributory - Social History Occupation: Employed Full-time Lives: Alone Alcohol Use: None Substance Use Type: Prescribed Smoking Status (MU): Heavy Every Day Tobacco Smoker Type: Cigarettes Amount Used/How Often: 1/2 PPD Length of Time of Smoking/Using Tobacco: age 11 Have You Smoked in the Last Year: Yes Household Exposure Type: Cigarettes - Immunization History Most Recent Influenza Vaccination: none Most Recent Tetanus Shot: AGE 19 Review of Systems All Other Systems Reviewed And Are Negative: Yes Constitutional: Positive: Chills, Fatigue. Negative: Fever Skin: Negative: Rash Eyes: Negative: Drainage, Eye Redness ENT: Positive: Sore Throat, Nasal Discharge, Sinus Congestion, Sinus Pain/ Tenderness. Negative: Ear Ache Respiratory: Negative: Shortness Of Breath, Cough Cardiovascular: Negative: Palpitations, Chest Pain Is Patient Immunocompromised?: No Physical Exam - Summary Physical Exam Summary: GENERAL APPEARANCE: Well developed, well nourished, alert and cooperative, and appears to be in no acute distress. EYES: Conjunctiva clear. No discharge. EARS: External auditory canals and tympanic membranes clear, hearing grossly intact. NOSE: Mild nasal congestion. No discharge. Maxillary sinus tenderness. THROAT: Oral cavity and pharynx normal. No tonsilar inflammation, swelling or exudate. Teeth and gingiva in good general condition. NECK: Neck supple, non-tender without lymphadenopathy. CARDIAC: Normal S1 and S2. No S3, S4 or murmurs. Rhythm is regular. There is no peripheral edema, cyanosis or pallor. Extremities are warm and well perfused. Capillary refill is less than 2 seconds. LUNGS: Clear to auscultation and percussion without rales, rhonchi, wheezing or diminished breath sounds. ABDOMEN: Positive bowel sounds. Soft, nondistended, nontender. No guarding or rebound. No masses or hepatosplenomegally. SKIN: Skin normal color, texture and turgor with no lesions or eruptions. Triage Information Reviewed: Yes Vital Signs: Initial Vital Signs Temp 99.4 F 03/30/18 11:24 Pulse 111 03/30/18 11:24 Resp 20 03/30/18 11:24 BP 102/68 03/30/18 11:24 Pulse Ox 98 03/30/18 11:24 Vital Signs Reviewed: Yes Throat Pain/Nasal Course/Dx - Course Course Of Treatment: 22-year-old female presents with one-week history of maxillary sinus pain, nasal congestion, and sore throat. States over past 2 days she has developed greenish nasal discharge that is occasionally blood- tinged. Last night had chills, night sweats, and generalized myalgias. No known fever. Denies ear pain, cough, chest pain, shortness of breath, abdominal pain, nausea, or vomiting. Afebrile. VSS. Exam consistent with an acute maxillary sinusitis. With her reported fever, will treat for bacterial sinusitis with Augmentin 875 mg BID x 10 days as well as symptomatic treatment. She is to follow up with her PCP in 7 days if symptoms persist. Warning symptoms reviewed. Verbalizes understanding and agrees with POC. - Differential Dx/Diagnosis Differential Diagnosis/HQI/PQRI: Pharyngitis, Sinusitis, Tonsillitis, URI Provider Diagnosis: Acute maxillary sinusitis Discharge - Sign-Out/Discharge Documenting (check all that apply): Patient Departure All imaging exams completed and their final reports reviewed: No Studies - Discharge Plan Condition: Stable Disposition: HOME Prescriptions: Amoxicillin/Clavulanate TAB* [Augmentin TAB 875*] 875 mg PO BID #20 tab Fluticasone NASAL SPRAY 50MCG* [Flonase NASAL SPRAY 50MCG*] 2 spray BOTH NARES DAILY #1 btl Patient Education Materials: Sinusitis (ED) Referrals: Albert Connelly MD [Primary Care Provider] - 7 Days (If no improvement.) Additional Instructions: Your history and exam are consistent with a sinus infection. With the onset of fever this morning we will start you on an antibiotic to treat for the infection. Start Augmentin 1 tab twice a day for 10 days. Take with food to avoid upset stomach. Be sure to complete the entire prescription even if feeling better. Drink plenty of fluids to avoid dehydration especially if you are running any fever. Use a saline rinse kit such as Neti Pot or NeilMed at least twice a day to help thin secretions and promote drainage of the sinuses. Use fluticasone (Flonase) nasal spray 2 sprays each nostril once daily. Use an over the counter decongestant such as Sudafed according to directions to help with congestion. Take over the counter acetaminophen (Tylenol) or ibuprofen (Advil, Motrin) according to directions as needed for pain or fever. Follow up with your primary care provider in 7 days if symptoms persist. Seek immediate medical attention in the emergency room if you have fever greater than 100.5 F despite taking acetaminophen or ibuprofen, have chest pain , difficulty breathing, are unable to swallow, or have any worsening of symptoms. - Billing Disposition and Condition Condition: STABLE Disposition: Home
== END 2018-03-30 12:26 | disposition home or self-care (01) ==
LOC: UCCORT 11:03
DX: J01.00 Acute maxillary sinusitis, unspecified (principal); Z88.1 Allergy status to other antibiotic agents; F17.210 Nicotine dependence, cigarettes, uncomplicated
CPT/HCPCS: 99212; G0463

== ENCOUNTER 2018-07-27 19:46 | Emergency (ER) | payer OTHER ==
--- OUTSIDE RECORDS SUMMARY | 2018-07-27 20:02 | XMS REPORT | Continuity of Care Document ---
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 at www.kdoqi.org. 18 URINE SPECIMENS ARE SCREENED AT THE LISTED CUTOFFS DRUG CLASS INITIAL TEST LEVEL Amphetamines 1000 ng/mL Barbiturates 200 ng/mL Benzodiazepines 200 ng/mL Cannabinoids 50 ng/mL Cocaine Metabolite 300 ng/mL Methadone 300 ng/mL Opiates 300 ng/mL Any PRESUMPTIVE POSITIVE findings are UNCONFIRMED. Confirmatory testing is suggested if findings are unexpected. Please contact laboratory if confirmatory testing is desired. SPECIMENS ARE HELD FOR 72 HOURS. 19 FIRST MORNING SPECIMENS GENERALLY CONTAIN THE HIGHEST CONCENTRATION OF HCG AND ARE RECOMMENDED FOR EARLY DETECTION OF . Method: Quidel QuickVue One-Step Immunoassay 20 URINE, CLEAN CATCH 21 POSSIBLE UROGENITAL CONTAMINATION. 22 URINE, CLEAN CATCH 23 > 100,000 CFU/mL 24 PSYCHIATRIC SERVICES 25 Performed at: [address] [id number] Archeology Professor: Flaco Stroud MD, Phone: [phone] CYCLIC VOMITING 27 Note: Persistent reduction for 3 months or more in an eGFR <60 mL/min/1.73 m2 defines CKD. Patients with eGFR values >/=60 mL/min/1.73 m2 may also have CKD if evidence of persistent proteinuria is present. The original MDRD equation for estimated GFR is not valid for patients less than 18 years of age. Additional information may be found at www.kdoqi.org. 28 URINE SPECIMENS ARE SCREENED AT THE LISTED CUTOFFS DRUG CLASS INITIAL TEST LEVEL Amphetamines 1000 ng/mL Barbiturates 200 ng/mL Benzodiazepines 200 ng/mL Cannabinoids 50 ng/mL Cocaine Metabolite 300 ng/mL Methadone 300 ng/mL Opiates 300 ng/mL Any PRESUMPTIVE POSITIVE findings are UNCONFIRMED. Confirmatory testing is suggested if findings are unexpected. Please contact laboratory if confirmatory testing is desired. SPECIMENS ARE HELD FOR 72 HOURS. 29 Note: Persistent reduction for 3 months or more in an eGFR <60 mL/min/1.73 m2 defines CKD. Patients with eGFR values >/=60 mL/min/1.73 m2 may also have CKD if evidence of persistent proteinuria is present. The original MDRD equation for estimated GFR is not valid for patients less than 18 years of age. Additional information may be found at www.kdoqi.org. 30 VOMITING, FEVER? 31 DR DACOSTA SENT FOR EMESIS 32 Note: Persistent reduction for 3 months or more in an eGFR <60 mL/min/1.73 m2 defines CKD. Patients with eGFR values >/=60 mL/min/1.73 m2 may also have CKD if evidence of persistent proteinuria is present. The original MDRD equation for estimated GFR is not valid for patients less than 18 years of age. Additional information may be found at www.kdoqi.org. 33 NORMALLY MENSTRUATING FEMALES: Follicular Phase:...............4-13 mIU/mL Mid-Cycle Peak:.................5-22 mIU/mL Luteal Phase:...................2-13 mIU/mL Postmenopausal Female:........20-138 mIU/mL 34 NORMALLY MENSTRUATING FEMALES: Follicular Phase.............1-18 mIU/mL Mid-Cycle Peak.............24-105 mIU/mL Luteal Phase...............0.4-20 mIU/mL Postmenopausal .............15-62 mIU/mL 35 Prepubertal <40 Female Cycle: 1-10 Days 61 - 394 11-20 Days 122 - 437 21-30 Days 156 - 350 Post-Menopausal <40 HMG Treatment for Ovulation Induction: 400 - 800 Performed at: [address] [id number] Archeology Professor: Flaco Stroud MD, Phone: [phone] QUERY: @PromoJam Pat ID: [id number] QUERY: @PromoJam Req #: [id number] QUERY: @PromoJam Pat ID: [id number] QUERY: @PromoJam Req #: [id number] QUERY: @This code for SINGLE insulin level. Use [facility]:[id number] (6 spec QUERY: @[id number] for Insulin (5 Specimens) QUERY: @Order [id number] (4 Specimens) QUERY: Is the Patient Fasting? Y 38 QUERY: @PromoJam Pat ID: [id number] QUERY: @PromoJam Req #: [id number] QUERY: @PromoJam Pat ID: [id number] QUERY: @PromoJam Req #: [id number] 40 FEMALE OSORIO STAGE 1 <3 - 6 2 <3 - 10 3 <3 - 24 4 <3 - 27 5 5 - 38 41 QUERY: @PromoJam Pat ID: [id number] QUERY: @PromoJam Req #: [id number] 42 FASTING GLUCOSE 96 mg/dL 1/2 HR GLUCOSE 157 mg/dL 1 HR GLUCOSE 102 mg/dL 2 HR GLUCOSE 93 mg/dL FAST URINE GLU NEGATIVE % FAST URINE KET NEGATIVE 1/2HR URINE GLU NEGATIVE % 1/2HR URINE KET NEGATIVE 1HR URINE GLU NO SPECIMEN RECEIVED % 1HR URINE KET NO SPECIMEN RECEIVED 2HR URINE GLU NEGATIVE % 2HR URINE KET NEGATIVE 43 APPROXIMATE GESTATIONAL AGE AND BHCG RANGE 0-1 WEEK.......................1-50 mIU/mL 1-2 WEEKS....................40-300 mIU/mL 2-3 WEEKS.................100-1,000 mIU/mL 3-4 WEEKS.................500-6,000 mIU/mL 1-2 MONTHS............5,000-200,000 mIU/mL 2-3 MONTHS...........10,000-100,000 mIU/mL 2nd TRIMESTER..........3,000-50,000 mIU/mL 3rd TRIMESTER..........1,000-50,000 mIU/mL 44 Osorio Stage Female 1 0 - 82 2 11 - 98 3 11 - 155 4 18 - 230 5 20 - 265 45 Performed at: [facility] [id number] Archeology Professor: Albert Snider MD, Phone: [phone] Performed at: [facility] [id number] Archeology Professor: Flaco Stroud MD, Phone: [phone] QUERY: @[facility] Pat ID: [id number] QUERY: @EMR Req #: [id number] ACTH reference interval for samples collected between 7 and 10 AM. Procedures Date Code Description Status 11/21/2017 77586 EKG Interpretation And Report Only Completed 11/14/2017 64075 EGD With Biopsy Completed Encounters Type Date Location Provider Dx Diagnosis Office Visit 12/03/2017 [facility] Kari Galeas PA F31.9 Bipolar disorder, 11:[address] unspecified F41.9 Anxiety disorder, unspecified F17.210 Nicotine dependence, cigarettes, uncomplicated J45.990 Exercise induced bronchospasm J30.9 Allergic rhinitis, unspecified Office Visit 11/29/2017 10:45a Gil Downing MD R93.3 Abnormal findings on dx imaging of prt digestive tract R10.9 Unspecified abdominal pain Office Visit 11/20/2017 1:30p Gil Downing MD R11.2 Nausea with vomiting, unspecified R93.3 Abnormal findings on dx imaging of prt digestive tract Office Visit 11/08/2017 2:15p Gil Downing, R11.2 Nausea with MD vomiting, unspecified Office Visit 11/30/2010 11:20a safety and occupational health manager Office Josh Patterson M.D. 256.4 Polycystic Ovaries Office Visit 11/22/2010 9:00a safety and occupational health manager Office Josh Patterson M.D. 256.4 Polycystic Ovaries 626.4 Irregular Menstrual Cycle 704.1 Hirsutism Plan of Treatment Future Appointment(s):08/13/2018 11:15 am - Kari Galeas PA at [facility] RD07/16/2018 - Kari Galeas, PAF41.0 Panic disorder [episodic paroxysmal anxiety]F31.9 Bipolar disorder, unspecifiedNew Medication:Quetiapine Fumarate 100 mg - 1 tab by mouth at bedtime dailyGuanfacine HCL 1 mg - 1/2 by mouth twice a dayCitalopram Hydrobromide 20 mg - 1 by mouth every dayComments: Plan to bridge medications until you can get re-established with [facility]. Will send rxs to the pharmacy.Adjustment of Seroquel to 100 mg bedtime.Follow up:1 month PE
[2018-07-27 20:05] VITALS: BP 127/73
--- NOTE | 2018-07-27 20:06 | UC ---
Throat Pain/Nasal Leo HPI - HPI Summary HPI Summary: 23 yo female presents with right ear pain with drainage and sore throat since this morning. She tells me that this morning her right ear felt a little painful , but by middays the pain was much worse and she noticed some drainage from the ear. Pain radiates down her right jaw. She has been taking tylenol/ibuprofen for discomfort. Denies fever, chills, sinus symptoms, cough, SOB, chest pain. - History of Current Complaint Stated Complaint: RIGHT EAR PAIN/DRAINAGE Time Seen by Provider: 07/27/18 20:04 Hx Obtained From: Patient Hx Last Menstrual Period: 03/25/18 Onset/Duration: Gradual Onset Severity: Severe Pain Intensity: 10 Pain Scale Used: 0-10 Numeric - Allergies/Home Medications Allergies/Adverse Reactions: Allergies Allergy/AdvReac Type Severity Reaction Status Date / Time Adhesive Tape Allergy Intermediate SKIN SWELLS Verified 07/27/18 20:01 azithromycin Allergy Vomiting Verified 07/27/18 20:01 latex Allergy Swelling Verified 07/27/18 20:01 shellfish derived Allergy Wheezing Verified 07/27/18 20:01 Home Medications: Home Medications guanFACINE TAB* [Tenex TAB*] 0.5 mg BID 07/27/18 [History Confirmed 07/27/18] PMH/Surg Hx/FS Hx/Imm Hx - Additional Past Medical History Additional PMH: ADHD Psychological History: Anxiety, Depression - Surgical History Surgical History: Yes Surgery Procedure, Year, and Place: 15 GI bx r/t c.diff - Family History Known Family History: Negative: Cardiac Disease, Hypertension, Diabetes - Social History Occupation: Employed Full-time Lives: With Family Alcohol Use: None Substance Use Type: Prescribed Smoking Status (MU): Heavy Every Day Tobacco Smoker Type: Cigarettes Amount Used/How Often: 1/2 PPD Length of Time of Smoking/Using Tobacco: age 11 Have You Smoked in the Last Year: Yes Household Exposure Type: Cigarettes - Immunization History Most Recent Influenza Vaccination: none Most Recent Tetanus Shot: AGE 19 Review of Systems All Other Systems Reviewed And Are Negative: Yes Constitutional: Positive: Negative Skin: Positive: Negative Eyes: Positive: Negative ENT: Positive: Sore Throat, Ear Ache Respiratory: Positive: Negative Cardiovascular: Positive: Negative Gastrointestinal: Positive: Negative Neurovascular: Positive: Negative Psychological: Positive: Negative Physical Exam - Summary Physical Exam Summary: GENERAL: NAD. WDWN. No pain distress. SKIN: No rashes, sores, lesions, or open wounds. HEENT: Head: AT/NC Eyes: EOM intact. Conjunctiva clear without inflammation or discharge. Ears: Hearing grossly normal. LEFT TM with mild erythema and bulging. No canal edema or drainage. RIGHT TM with mild canal edema and white/ yellow purulent drainage. TM appears intact. Mild pain with auricle manipulation. No mastoiditis. Nose: Nasal mucosa pink and moist. NTTP maxillary and frontal sinus. Throat: Posterior oropharynx mild erythema. No exudates or tonsillar enlargement. Uvula midline. NECK: Supple. Nontender. No lymphadenopathy. CHEST: CTAB. No r/r/w. No accessory muscle use. Breathing comfortably and in no distress. CV: RRR. Without m/r/g. Pulses intact. NEURO: Alert. PSYCH: Age appropriate behavior. Triage Information Reviewed: Yes Vital Signs: Vital Signs: Temp Pulse Resp BP Pulse Ox 100 F 99 16 127/73 100 07/27/18 20:02 07/27/18 20:02 07/27/18 20:02 07/27/18 20:02 07/27/18 20:02 Vital Signs Reviewed: Yes Throat Pain/Nasal Course/Dx - Course Course Of Treatment: Otitis media left with Otitis externa on right. In the clinic pt was given ibuprofen, augmentin, and cipro eye drops to be used in the ear. Rx for these sent to pharmacy. Advised to apply a cool compress to the ear to reduce pain. F/ u if symptoms do not improve. - Differential Dx/Diagnosis Provider Diagnosis: Otitis media, left, Otitis externa of right ear Discharge - Sign-Out/Discharge Documenting (check all that apply): Patient Departure All imaging exams completed and their final reports reviewed: No Studies - Discharge Plan Condition: Stable Disposition: HOME Prescriptions: Amoxicillin/Clavulanate TAB* [Augmentin TAB 875*] 875 mg PO BID #14 tab Ofloxacin 0.3% (Ear Drop)* [Floxin 0.3% OTIC.EDISON (Ear Drop)] 5 drop RIGHT EAR BID #1 btl Patient Education Materials: Otitis Externa (ED), Ear Infection (ED) Referrals: Kari Galeas PA [Primary Care Provider] - Additional Instructions: If you develop a fever, shortness of breath, chest pain, new or worsening symptoms - please call your PCP or go to the ED. - Billing Disposition and Condition Condition: STABLE Disposition: Home
[2018-07-27] MEDS ORDERED: Amoxicillin/Clavulanate TAB* 875 MG PO ONE (20:10)
[2018-07-27] MEDS ORDERED: Ibuprofen TAB* 600 MG PO ONE (20:10)
[2018-07-27] MEDS ORDERED: Ciprofloxacin 0.3% OPTH.SOL* 2.5 ML BTL ONE (20:14)
== END 2018-07-27 20:25 | disposition home or self-care (01) ==
LOC: UCCORT 19:46
DX: H60.91 Unspecified otitis externa, right ear (principal); H66.92 Otitis media, unspecified, left ear; F90.9 Attention-deficit hyperactivity disorder, unspecified type; F17.210 Nicotine dependence, cigarettes, uncomplicated; Z91.09 Other allergy status, other than to drugs and biological substances; Z88.1 Allergy status to other antibiotic agents; Z91.040 Latex allergy status; Z91.013 Allergy to seafood
CPT/HCPCS: 99213; A9270-GY; G0463

== ENCOUNTER 2018-11-01 16:31 | Emergency (ER) | payer OTHER ==
[2018-11-01 17:07] VITALS: BP 109/71
--- NOTE | 2018-11-01 17:13 | UC ---
Complaint Female HPI - HPI Summary HPI Summary: Per product test specialist: "urinary urgency, small amounts, hurts at the end of urination, "weird vaginal spotting" -here w/ her young dtr w/ autism. 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 has had cystitis and kidney infections w/ gross hematuria with them in past. she does not recall what abx she uses. has been some time since she had one + body aches -no n/v. no rash - History Of Current Complaint Chief Complaint: UCGU Stated Complaint: URINARY Time Seen by Provider: 11/01/18 17:12 Hx Last Menstrual Period: 10/14/18 Pain Intensity: 0 - Allergies/Home Medications Allergies/Adverse Reactions: Allergies Allergy/AdvReac Type Severity Reaction Status Date / Time Adhesive Tape Allergy Intermediate SKIN SWELLS Verified 11/01/18 17:07 azithromycin Allergy Vomiting Verified 11/01/18 17:07 latex Allergy Swelling Verified 11/01/18 17:07 shellfish derived Allergy Wheezing Verified 11/01/18 17:07 PMH/Surg Hx/FS Hx/Imm Hx Previously Healthy: Yes - Surgical History Surgical History: Yes Surgery Procedure, Year, and Place: 15 GI bx r/t c.diff - Family History Known Family History: Negative: Cardiac Disease, Hypertension, Diabetes - Social History Alcohol Use: None Substance Use Type: None Smoking Status (MU): Heavy Every Day Tobacco Smoker Type: Cigarettes Amount Used/How Often: 1/2 PPD Length of Time of Smoking/Using Tobacco: age 11 Have You Smoked in the Last Year: Yes Household Exposure Type: Cigarettes - Immunization History Most Recent Influenza Vaccination: none Most Recent Tetanus Shot: AGE 19 Review of Systems All Other Systems Reviewed And Are Negative: Yes Constitutional: Positive: Negative Skin: Positive: Negative Eyes: Positive: Negative ENT: Positive: Negative Respiratory: Positive: Negative Cardiovascular: Positive: Negative Gastrointestinal: Positive: Negative Genitourinary: Positive: Dysuria, Frequency, Urgency Motor: Positive: Negative Neurovascular: Positive: Negative Musculoskeletal: Positive: Negative Neurological: Positive: Negative Psychological: Positive: Negative Is Patient Immunocompromised?: No Physical Exam Triage Information Reviewed: Yes Appearance: Well-Appearing, No Pain Distress, Well-Nourished - very pleasant Vital Signs: Initial Vital Signs Temp 98.9 F 11/01/18 17:00 Pulse 92 11/01/18 17:00 Resp 16 11/01/18 17:00 BP 109/71 11/01/18 17:00 Pulse Ox 100 11/01/18 17:00 Vital Signs Reviewed: Yes Eye Exam: Normal ENT Exam: Normal Neck exam: Normal Neck: Positive: Supple, Nontender, No Lymphadenopathy Respiratory Exam: Normal Respiratory: Positive: Lungs clear, Normal breath sounds, No respiratory distress, No accessory muscle use Cardiovascular Exam: Normal Cardiovascular: Positive: RRR Abdomen Description: Positive: Soft, Other: - mild suprapubic tenderness. Negative: CVA Tenderness (R), CVA Tenderness (L), Distended, Guarding Bowel Sounds: Positive: Present Musculoskeletal Exam: Normal Neurological Exam: Normal Psychological Exam: Normal Skin Exam: Normal Complaint Female Dx - Course Course Of Treatment: UA abnml w/ positive UTI sx and historically feels like prev UTIs. -ER with worsening sx, f/c body aches - Differential Dx/Diagnosis Differential Diagnosis/HQI/PQRI: Ureteral Stone, Urinary Tract Infection Provider Diagnosis: Dysuria Discharge - Sign-Out/Discharge Documenting (check all that apply): Patient Departure All imaging exams completed and their final reports reviewed: No Studies - Discharge Plan Condition: Stable Disposition: HOME Prescriptions: Nitrofurantoin Monohyd/M-Cryst [Macrobid 100 mg Capsule] 100 mg PO BID 7 Days # 14 cap Patient Education Materials: Urinary Tract Infection in Women (DC) Referrals: Kari Galeas PA [Primary Care Provider] - Additional Instructions: Please make sure to go to the ER if you develop fevers/chills or worsening symptoms. - Billing Disposition and Condition Condition: STABLE Disposition: Home
== END 2018-11-01 18:08 | disposition home or self-care (01) ==
LOC: UCCORT 16:31
DX: R30.0 Dysuria (principal); Z87.440 Personal history of urinary (tract) infections; Z88.1 Allergy status to other antibiotic agents; F17.210 Nicotine dependence, cigarettes, uncomplicated
CPT/HCPCS: 81003; 84702; 87086; 99212; G0463

== ENCOUNTER 2019-01-13 17:38 | Emergency (ER) | payer OTHER ==
--- OUTSIDE RECORDS SUMMARY | 2019-01-13 17:53 | XMS REPORT | Continuity of Care Document ---
:1995 External Reference #:[id number] Author Name Kari Galeas PA Address [address] [place] [address] Care Team Providers Name Role Phone Kari Galeas PA - Medical Care Team Information Sign Hanger [phone] Problems Active Problems Provider Date Allergic rhinitis Kari Galeas PA Onset: 12/03/2017 Exercise-induced asthma Kari Galeas PA Onset: 12/03/2017 Tobacco user Kari Galeas PA Onset: 12/03/2017 Anxiety state Kari Galeas PA Onset: 12/03/2017 Bipolar disorder Kari Galeas PA Onset: 12/03/2017 Abdominal pain Gil Livingston MD Onset: 11/29/2017 Gastrointestinal tract finding Gil Livingston MD Onset: 11/20/2017 Nausea and vomiting Gil Livingston MD Onset: 11/20/2017 Social History Type Date Description Comments Sex Unknown Tobacco Use Start: Unknown currently smokes 1/2 Pack Daily Smoking Status Reviewed: 12/03/18 currently smokes 1/2 Pack Daily Smokeless Tobacco Never Used Smokeless Tobacco ETOH Use 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 Recreational Drug Use Formerly used Barbiturates sporadically Tobacco Use Start: Unknown Patient is a current 1/2 ppd smoker, smokes every day Recreational Drug Use Marijuana Enjoy Exercising Does not enjoy exercising Tattoo/Piercing Pierced ears Tattoo/Piercing Pierced Nasal Area Tattoo/Piercing Pierced Navel Allergies, Adverse Reactions, Alerts Active Allergies Reaction Severity Comments Date Estrogens facial numbness/migraine aura 11/22/2010 Progesterone facial numbness, migraine aura 11/22/2010 Medications Active Medications SIG Qnty Indications Ordering Date Provider Methylprednisolone take tablets as 21units K52.9 Mendoza, 12/03/2018 4mg TBPK directed-dose MD Sarah pack Hyoscyamine Sulfate take 1 tablet by 30tabs K52.9 Mendoza, 12/03/2018 0.125mg mouth every 4 MD Sarah Tablets hours as needed for abnormal function of the digestive system Clonazepam 1 tab by mouth 75tabs Mendoza, 07/23/2018 0.5mg Tablets three times a MD Sarah day as needed for panic . Temporary sig change Ref #[id number] Quetiapine Fumarate 1 tab by mouth 30tabs F31.9 Mendoza, 07/16/2018 100mg at bedtime daily MD Sarah Tablets Guanfacine HCL 1/2 by mouth 30tabs F31.9 Mendoza, 07/16/2018 1mg Tablets twice a day MD Sarah Citalopram Hydrobromide 1 by mouth every 30tabs F31.9 Mendoza, 07/16/2018 20mg day MD Sarah Tablets Ventolin HFA 2 puffs every 4 18gm J45.990 Jessica Ingram, 12/03/2017 108(90Base) hours as needed M.D. mcg/Act Aerosol for cough and wheeze History Medications Magnesium 1 by mouth every 90tabs G43.101 Sarah Donaldson, 08/13/2018 - 400mg day for the MD 12/03/2018 Tablets prevention of headache Vitamin B-2 1 by mouth every 90tabs G43.101 Sarah Donaldson, 08/13/2018 - 100mg day for prevention MD 12/03/2018 Tablets of headache Diflucan take 1 tablet by 2tabs Sarah French, 08/07/2018 - 150mg mouth one time. [employer] 08/13/2018 Tablets may repeat in 1 week if necessary. Clonazepam 1 tab by mouth 75tabs Sarah Donaldson, 07/22/2018 - 0.5mg every morning, 1 07/23/2018 Tablets Dispers 1/2 every evenning Reference #[id number] Immunizations Description No Information Available Vital Signs Date Vital Result Comment 12/03/2018 1:50pm BP Systolic 98 mmHg BP Diastolic 60 mmHg Body Temperature 98.5 F Heart Rate 92 /min Respiratory Rate 18 /min Height 63 inches 5'3" Weight 137.50 lb BMI (Body Mass Index) 24.4 kg/m2 BSA (Body Surface Area) 1.65 m2 [place] body weight in kilograms 52 kg O2 % BldC Oximetry 97 % 08/13/2018 11:36am BP Systolic Sitting Right Arm 108 mmHg BP Diastolic Sitting Right Arm 60 mmHg Body Temperature 99.5 F Heart Rate 107 /min Height 63 inches 5'3" Weight 140.25 lb BMI (Body Mass Index) 24.8 kg/m2 BSA (Body Surface Area) 1.66 m2 [place] body weight in kilograms 52 kg O2 % BldC Oximetry 95 % Results Test Date Facility Test Result H/L Range Note Urine Culture And [facility] Urine SEE RESULT 1, 2 Sensitivities [phone] Culture BELOW Laboratory test [facility] Poc Negative Negative 3 finding [phone] , Urine Poc Urinalysis [facility] Poc Glucose, Negative Negative 4 [phone] Urine Poc Bilirubin, Urine 1+ Abnormal Negative Poc Ketone, Urine Trace Abnormal Negative Poc Specific Siler, Urine 1.025 Normal 1.010-1.030 Poc Blood, Urine 3+ Abnormal Negative Poc pH, Urine 6.5 Normal 5-9 Poc Protein, Urine 2+ Abnormal Negative Poc Urobilinogen, Urine 1.0 Negative Poc Nitrite, Urine Negative Negative Poc Leukocytes, Urine 1+ Abnormal Negative Poc Color, Urine Yellow Poc Clarity, Urine Clear 4 CBC W/Automated 09/14/2018 [facility] White Blood 7.7 K/uL Normal 3.1-10.[address] [place] [address] [phone] Red Blood Count 4.68 M/uL Normal 3.90-5.40 Hemoglobin 14.1 gm/dL Normal 11.6-15.8 Hematocrit 42.1 % Normal 36.0-46.1 Mean Cell Volume 90.0 fl Normal 80.9-99.0 Mean Corpuscular HGB 30.1 pg Normal 25.9-32.7 Mean Corpuscular HGB Conc 33.5 g/dL Normal 30.8-34.3 Platelet Count 267 K/uL Normal 155-360 Red Cell Distri Width SD 42.5 fl Normal 36-47 Red Cell Distri Width %CV 12.9 % Normal 11.7-14.4 Mean Platelet Volume 10.0 fl Normal 8.9-12.4 Neut% 62.0 % Normal 40.4-72.8 Lymph % 27.0 % Normal 20.0-42.0 Butte % 8.0 % Normal 4.3-13.2 Eo% 2.1 % Normal 0.0-6.6 Bas% 0.4 % Normal 0.0-1.1 Immature Grans 0.5 % Normal 0.0-5.0 NRBC % 0.0 /100WBC < 10/ 100 WBC Neut# 4.78 K/uL Normal 1.8-7.0 Lymph # 2.08 K/uL Normal 1.0-4.0 Butte # 0.62 K/uL Normal 0.3-0.9 Eos # 0.16 K/uL Normal 0.0-0.5 Baso # 0.03 K/uL Normal 0.0-0.1 Immature Grans Absolute 0.04 K/uL NRBC # 0.00 K/uL Ua RFX Micro & Culture 09/14/2018 [facility] Urine Color YELLOW Yellow II [address] [place] [address] [phone] Urine Clarity CLEAR Clear Urine Glucose - Dipstick NEGATIVE mg/dL Negative Urine Bilirubin - Dipstick NEGATIVE Negative Urine Ketone NEGATIVE mg/dL Negative Urine Specific Siler 1.020 Normal 1.010-1.030 Urine Blood NEGATIVE Negative Urine PH 7.5 Normal 6.5-7.5 Urine Protein - Dipstick NEGATIVE mg/dL Negative Urine Urobilinogen - Dipstick 0.2 E.U./dL Normal 0.2-1.0 Urine Nitrite - Dipstick NEGATIVE Negative Urine Leuk Esterase NEGATIVE Negative Source: URINE, CLEAN CAT <SEE NOTE> 6 Chlam/GC/Trichomonas 09/14/2018 [facility] Ur Trichomonas NEGATIVE Negative PCR, Ur [address] vaginalis,[place] [address] [phone] Ur Chlamydia trachomatis,PCR NEGATIVE Negative Ur Neisseria gonorrhoeae,PCR NEGATIVE Negative 7 Basic Metabolic Panel 08/16/2018 [facility] Glucose 85 mg/dL Normal 74-106 8 [address] [place] [address] [phone] BUN 8 mg/dL Normal 7-18 Creatinine 0.6 mg/dL Normal 0.6-1.3 Glom Filtration Rate, Estimate >60 mL/min >60 If >60 mL/min >60 9 BUN/Creat 13.3 ratio Sodium 140 mmol/L Normal 136-145 Potassium 3.6 mmol/L Normal 3.5-5.1 Chloride 110 mmol/L High 98-107 Carbon Dioxide 25 mmol/L Normal 21-32 Anion Gap 5 mEq/L Low 8-16 Calcium 8.5 mg/dL Normal 8.5-10.1 Laboratory test 08/16/2018 [facility] D-Dimer, 0.32 ug/mL [address] [place] [place] [address] [phone] Chlam/GC/Tricho 08/13/[address] [facility] [address] Ur Trichomonas NEGATIVE Negative 11 monas PCR, Ur [address] vaginalis,[place] [address] [phone] Ur Chlamydia trachomatis,PCR NEGATIVE Negative Ur Neisseria gonorrhoeae,PCR NEGATIVE Negative 12 Urine Dipstick 08/13/2018 [facility] Ua Color yellow Yellow Ua Clarity clear Clear Ua Leuko negative Negative Ua Nitrite negative Negative Ua Urobilinogen 3.5 umol/L High 0.2 - 1.0 E.U./dL Ua Protein 0.15 g/L High Negative Ua PH 8.5 High 6.5-7.5 Ua Blood negative Negative Ua Specific Siler 1.015 1.010-1.030 Ua Ketones negative Negative Ua Bilirubin negative Negative Ua Glucose negative Negative HPV High Risk - 08/13/2018 [facility] HPV High Risk Results on 13 Alt Ref Lab [address] [place] [address] [phone] Affirm 08/13/[address] [facility] [address] Trichomonas Negative [Nega Vaginitis Panel [address] vaginalis tive] [place] [address] [phone] Gardnerella vaginalis POSITIVE Abnormal [Negative] Kellie species Negative [Negative] 14 Test, Serum 07/20/2018 N2N/[facility]D Import Preg,Serum Neg Negative Ruq panel (ED only) 07/20/2018 N2N/[facility]D Import Amylase 29 U/L 28 - 100 Lipase 15 U/L 13 - 60 Total Protein 6.4 g/dL 6.3 - 7.7 Albumin 4.2 g/dL 3.5 - 5.2 Bilirubin,Total 0.5 mg/dL 0.0 - 1.2 Bilirubin,Direct <0.2 0.0 - 0.3 mg/dL Alk Phos 68 U/L 35 - 105 Ast 24 U/L 0 - 35 Alt 22 U/L 0 - 35 Plasma profile 7 07/20/2018 N2N/CCD Import Chloride,Plasma 108 mmol/L 96 - 108 (Adult ED only) Co2,Plasma 22 mmol/L 20 - 28 Potassium,Plasma 3.5 mmol/L 3.4 - 4.7 Sodium,Plasma 142 mmol/L 133 - 145 Anion Gap,PL 12 7 - 16 Un,Plasma 14 mg/dL 6 - 20 Creatinine 0.49 mg/dL Low 0.51 - 0.95 GFR, 136 * GFR,Black 157 * Glucose,Plasma 150 mg/dL High 60 - 99 CBC and differential 07/20/2018 N2N/CCD Import WBC 6.1 4.0 - 10.0 Thou/ uL RBC 4.5 3.9 - 5.2 Mil/uL Hemoglobin 13.0 g/dL 11.2 - 15.7 Hematocrit 40 % 34 - 45 MCV 89 fL 79 - 95 MCH 29 26 - 32 pg/cell MCHC 33 g/dL 32 - 36 RDW 12.5 % 11.7 - 14.4 Platelets 207 160 - 370 Thou/uL Seg Neut % 91.1 % Lymphocyte % 4.8 % Monocyte % 3.1 % Eosinophil % 0.0 % Basophil % 0.2 % Neut # K/uL 5.5 1.6 - 6.1 Thou/uL Lymph # K/uL 0.3 Low 1.2 - 3.7 Thou/uL Butte # K/uL 0.2 0.2 - 0.9 Thou/uL Eos # K/uL 0.0 0.0 - 0.4 Thou/uL Baso # K/uL 0.0 0.0 - 0.1 Thou/uL Nucl RBC % 0.0 0.0 - 0.2 /100 WBC Nucl RBC # K/uL 0.0 0.0 - 0.0 Thou/uL Imm Granulocytes # 0.1 Thou/uL Imm Granulocytes 0.8 % 1 [id number] 2 SEE RESULT BELOW Name: MARTY MORLEY Lev : [address]: Racheal Edwards MD Acct: [id number] Unit: [id number] AGE: 23 Location: [facility] Re11/01/18 SEX: F Status: DEP ER SPEC: [id number] KATE: 11/01/18-[address]: Racheal Edwards MD REQ: [id number] RECD: 11/02/18 STATUS: ROHIT SWEENEY DR: Kari PROCTOR _ SOURCE: URINE SPDESC: ORDERED: Urine Culture COMMENTS: [id number] Procedure Result Reported Site Urine Culture Final 11/04/18- 0835 ML Few Enterobacteriacae; possible contamination. * ML - Main Lab . END OF REPORT DEPARTMENT OF PATHOLOGY, [address] [place] [address] Kelvin Gracia M.D. Director [facility] # [id number] 3 Car Knocker: [id number] Test Disclaimer: Positive bacteria, red blood cells, white blood cells, early , low specific gravity, and other factors may cause false positive or negative results. It is recommended to retest unexpected and borderline results with a serum test when applicable. If is still suspected, please repeat test after 48 to 72 hours. 4 Car Knocker: [id number] 5 PELVIC PAIN, POSITIVE TEST 6 URINE, CLEAN CATCH 7 A negative result for either C. trachomatis and/or N. gonorrhoeae does not preclued an infection because results are dependent on adequate specimen collection, absence of inhibitors, and sufficient DNA to be detected. 8 CP LT SIDE,ARM AND BACK PAIN 9 Note: Persistent reduction for 3 months or more in an eGFR <60 mL/min/1.73 m2 defines CKD. Patients with eGFR values >/=60 mL/min/1.73 m2 may also have CKD if evidence of persistent proteinuria is present. The original MDRD equation for estimated GFR is not valid for patients less than 18 years of age. Additional information may be found at www.kdoqi.org. 10 <=0.49 ug/mL - Low likelihood of DIC, DVT or Pulmonary Embolism >0.49 ug/mL - Additional testing should be done to rule out DIC, DVT, or Pulmonary embolism as clinically indicated. ([facility] has established a 97.89% negative predictive value for thrombotic disease when a cutoff value of 0.5 ug/mL is used.) 11 Z11.3 Z00.01 12 A negative result for either C. trachomatis and/or N. gonorrhoeae does not preclued an infection because results are dependent on adequate specimen collection, absence of inhibitors, and sufficient DNA to be detected. 13 Hard copy of report to be sent by mail Report may be viewed in Clinical Review, or in PCI under Medical Record Forms 14 Method: BD Affirm VPIII DNA Probe Assay Procedures Description No Information Available Medical Devices Description No Information Available Encounters Type Date Location Provider Dx Diagnosis Office Visit 08/13/2018 [facility] Kari Galeas PA Z00.01 Encounter for 11:15a [address] general adult medical exam w abnormal findings H66.011 Acute suppr otitis media w spon rupt ear drum, right ear H91.92 Unspecified hearing loss, left ear Z11.3 Encntr screen for infections w sexl mode of transmiss G43.101 Migraine with aura, not intractable, with status migrainosus D48.62 Neoplasm of uncertain behavior of left breast Z12.4 Encounter for screening for malignant neoplasm of cervix Office Visit 08/07/2018 4:30p [facility] Sarah French, H66.[address] [employer] otitis media w spon rupt ear drum, right ear H91.92 Unspecified hearing loss, left ear F41.0 Panic disorder [episodic paroxysmal anxiety] B37.3 Candidiasis of vulva and vagina R51 Headache Z71.9 Counseling, unspecified Office Visit 07/31/2018 11:30a [facility] Kari Galeas, H66.[address] PA otitis media w spon rupt ear drum, right ear H91.92 Unspecified hearing loss, left ear Office Visit 07/24/2018 4:15p [facility] Kari Galeas, R11.[address] PA vomiting, unspecified F41.0 Panic disorder [episodic paroxysmal anxiety] Office Visit 07/16/2018 11:00a [facility] Kari Galeas, F41.[address] PA [episodic paroxysmal anxiety] F31.9 Bipolar disorder, unspecified Assessments Date Code Description Provider 12/03/2018 F41.0 Panic disorder [episodic paroxysmal anxiety] Kari Galeas PA 12/03/2018 K52.9 Noninfective gastroenteritis and colitis, Kari Galeas PA unspecified 12/03/2018 D48.62 Neoplasm of uncertain behavior of left breast Kari Galeas PA 08/13/2018 Z00.01 Encounter for general adult medical examination Kari Galeas PA with abnorma 08/13/2018 H66.011 Acute suppurative otitis media with spontaneous Kari Galeas PA rupture of e 08/13/2018 H91.92 Unspecified hearing loss, left ear Kari Galeas PA 08/13/2018 Z11.3 Encounter for screening for infections with a Kari Galeas PA predominantly 08/13/2018 G43.101 Migraine with aura, not intractable, with status Kari Galeas PA migrainosus 08/13/2018 D48.62 Neoplasm of uncertain behavior of left breast Kari Galeas PA 08/13/2018 Z12.4 Encounter for screening for malignant neoplasm Kari Galeas PA of cervix 08/07/2018 H66.011 Acute suppurative otitis media with spontaneous Sarah French FNP rupture of e 08/07/2018 H91.92 Unspecified hearing loss, left ear Sarah French FNP 08/07/2018 F41.0 Panic disorder [episodic paroxysmal anxiety] Sarah French FNP 08/07/2018 B37.3 Candidiasis of vulva and vagina Sarah French FNP 08/07/2018 R51 Headache Sarah French FNP 08/07/2018 Z71.9 Counseling, unspecified Sarah French FNP 07/31/2018 H66.011 Acute suppurative otitis media with spontaneous Kari Galeas PA rupture of e 07/31/2018 H91.92 Unspecified hearing loss, left ear Kari Galeas PA 07/24/2018 R11.2 Nausea with vomiting, unspecified Kari Galeas PA 07/24/2018 F41.0 Panic disorder [episodic paroxysmal anxiety] Kari Galeas PA 07/16/2018 F41.0 Panic disorder [episodic paroxysmal anxiety] Kari Galeas PA 07/16/2018 F31.9 Bipolar disorder, unspecified Kari Galeas PA Plan of Treatment Future Appointment(s):12/18/2018 1:15 pm - Kari Galeas PA at [facility]12/03/2018 - Adal, Kari, PAF41.0 Panic disorder [episodic paroxysmal anxiety]Comments:Abd pain has increased the anxiety. Will increase the Clonazepam to 1 tab tid. Patient is waiting for psych consult at [facility]. Expects to be seen in the next month.Follow up:2 jirpzI35.9 Noninfective gastroenteritis and colitis, unspecifiedNew Medication:Methylprednisolone 4 mg - take tablets as directed-dose packHyoscyamine Sulfate 0.125 mg - take 1 tablet by mouth every 4 hours as needed for abnormal function of the digestive systemComments:Clear fluids. Small meals or snacks with soft, bland diet.Referral:Gil Livingston MD, YdojgglvlwijozzfL06.62 Neoplasm of uncertain behavior of left breastNew Xrays:Ultrasound, Breast Unilateral Left, Ordered: Functional Status Description No Information Available Mental Status Description No Information Available Referrals Refer to Reason for Referral Status Appt Date Gil Livingston MD Urgent referral to resume treatment. Patient Created notes hx of colitis and symptoms have flared up terrifically lately. [address] [facility] [address] [place] [address] [phone] [facility] 23yo female patient wants to get re-established Closed 08/26/2018 with an ENT for possible sinus surgery that she was told she was a candidate for in the past. Of note, she is currently recovering from a ruptured right TM. [address] [place] [address] [phone] Josh Cat MD Previous patient. Continues with Migraines. sunday Sent 12/24/2018Sunday are good for pt [address] [place] [address] [phone]
--- OUTSIDE RECORDS SUMMARY | 2019-01-13 17:53 | XMS REPORT | Continuity of Care Document ---
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 Recreational Drug Use Formerly used Barbiturates sporadically Tobacco Use Start: Unknown Patient is a current 1/2 ppd pt also smoker, smokes every day smokes marijuana Recreational Drug Use Marijuana Enjoy Exercising Does not enjoy exercising Tattoo/Piercing Pierced ears Tattoo/Piercing Pierced Nasal Area Tattoo/Piercing Pierced Navel Allergies, Adverse Reactions, Alerts Active Allergies Reaction Severity Comments Date Estrogens facial numbness/migraine aura 11/22/2010 Progesterone facial numbness, migraine aura 11/22/2010 Medications Active Medications SIG Qnty Indications Ordering Date Provider Hyoscyamine Sulfate take 1 tablet by 30tabs K52.9 Sarah Doanldson, 2018 mouth every 4 MD 0.125mg Tablets hours as needed for abnormal function of the digestive system Clonazepam 1 tab by mouth 15tabs Sarah Donaldson, 07/23/2018 0.5mg three times a day MD Tablets as needed for panic . 5 day emergency supply Ref # Quetiapine Fumarate take 1 tablet by 30tabs F31.9 Sarah Donaldson, 2018 mouth at bedtime MD 100mg Tablets Guanfacine HCL 1/2 by mouth twice 30tabs F31.9 Sarah Donaldson, 07/16/2018 1mg a day MD Tablets Citalopram 1 by mouth every 30tabs F31.9 Sarah Donaldson, 07/16/2018 Hydrobromide day MD 20mg Tablets Ventolin HFA 2 puffs every 4 18gm J45.990 Jessica Ingram, 12/03/2017 hours as needed M.D. 108(90Base) mcg/Act for cough and Aerosol wheeze History Medications Methylprednisolone take tablets as 21units K52.9 Mendoza, 12/03/2018 - 4mg TBPK directed-dose pack MD Sarah 12/08/2018 Magnesium 1 by mouth every 90tabs G43.101 Mendoza 08/13/2018 - 400mg Tablets day for the MD Sarah 12/03/2018 prevention of headache Vitamin B-2 1 by mouth every 90tabs G43.101 Mendoza 08/13/2018 - 100mg Tablets day for prevention MD Sarah 12/03/2018 of headache Diflucan take 1 tablet by 2tabs Sarah French, 08/07/2018 - 150mg Tablets mouth one time. SANITARIAN AIDE 08/13/2018 may repeat in 1 week if necessary. Clonazepam 1 tab by mouth 75tabs Mendoza 07/22/2018 - 0.5mg Tablets every morning, 1 MD Sarah 07/23/2018 Dispers 1/2 every evenning Reference #[id number] Immunizations Description No Information Available Vital Signs Date Vital Result Comment 01/03/2019 3:44pm BP Systolic 118 mmHg BP Diastolic 70 mmHg Body Temperature 99.3 F Heart Rate 90 /min Respiratory Rate 18 /min Weight 134.12 lb O2 % BldC Oximetry 97 % 12/31/2018 2:37pm BP Systolic 118 mmHg BP Diastolic 64 mmHg Body Temperature 99.2 F Heart Rate 96 /min Respiratory Rate 17 /min Height 65.5 inches 5'5.50" Weight 135.44 lb BMI (Body Mass Index) 22.2 kg/m2 BSA (Body Surface Area) 1.69 m2 [place] body weight in kilograms 58 kg O2 % BldC Oximetry 98 % Results Test Date Facility Test Result H/L Range Note Urine Culture And [facility] Urine SEE RESULT 1, 2 Sensitivities 1 [phone] Culture BELOW Laboratory test [facility] Poc Negative Negative 3 finding 9 [phone] , Urine Poc Urinalysis [facility] Poc Glucose, Negative Negative 4 [phone] Urine Poc Bilirubin, Urine 1+ Abnormal Negative Poc Ketone, Urine Trace Abnormal Negative Poc Specific [place], Urine 1.025 Normal 1.010-1.030 Poc Blood, Urine 3+ Abnormal Negative Poc pH, Urine 6.5 Normal 5-9 Poc Protein, Urine 2+ Abnormal Negative Poc Urobilinogen, Urine 1.0 Negative Poc Nitrite, Urine Negative Negative Poc Leukocytes, Urine 1+ Abnormal Negative Poc Color, Urine Yellow Poc Clarity, Urine Clear 4 CBC W/Automated 09/14/2018 [facility] White Blood 7.7 K/uL Normal 3.1-10.7 [address] [place] [address] [phone] Red Blood Count 4.68 M/uL Normal 3.90-5.40 [...] 40.4-72.8 Lymph % 27.0 % Normal 20.0-42.0 [place] % 8.0 % Normal 4.3-13.2 Eo% 2.1 % Normal 0.0-6.6 Bas% 0.4 % Normal 0.0-1.1 Immature Grans 0.5 % Normal 0.0-5.0 NRBC % 0.0 /100WBC < 10/ 100 WBC Neut# 4.78 K/uL Normal 1.8-7.0 Lymph # 2.08 K/uL Normal 1.0-4.0 [place] # 0.62 K/uL Normal 0.3-0.9 Eos # 0.16 K/uL Normal 0.0-0.5 Baso # 0.03 K/uL Normal 0.0-0.1 Immature Grans Absolute 0.04 K/uL NRBC # 0.00 K/uL Ua RFX Micro & Culture 09/14/2018 [facility] Urine Color YELLOW Yellow II [address] [place] [address] [phone] Urine Clarity CLEAR Clear Urine Glucose - Dipstick NEGATIVE mg/dL Negative Urine Bilirubin - Dipstick NEGATIVE Negative Urine Ketone NEGATIVE mg/dL Negative Urine Specific [place] 1.020 Normal 1.010-1.030 Urine Blood NEGATIVE Negative Urine PH 7.5 Normal 6.5-7.5 Urine Protein - Dipstick NEGATIVE mg/dL Negative Urine Urobilinogen - Dipstick 0.2 E.U./dL Normal 0.2-1.0 Urine Nitrite - Dipstick NEGATIVE Negative Urine Leuk Esterase NEGATIVE Negative Source: URINE, CLEAN CAT <SEE NOTE> 6 Chlam/GC/Trichomonas 09/14/2018 [facility] Ur Trichomonas NEGATIVE Negative PCR, Ur [address] vaginalis,PCR [place], [place] [id number] [phone] Ur Chlamydia trachomatis,PCR NEGATIVE Negative Ur Neisseria gonorrhoeae,PCR NEGATIVE Negative 7 Basic Metabolic Panel 08/16/2018 [facility] Glucose 85 mg/dL Normal 74-106 8 [address] [place] [address] [phone] BUN 8 mg/dL Normal 7-18 Creatinine 0.6 mg/dL Normal 0.6-1.3 Glom Filtration Rate, Estimate >60 mL/min >60 If >60 mL/min >60 9 BUN/Creat 13.3 ratio Sodium 140 mmol/L Normal 136-145 Potassium 3.6 mmol/L Normal 3.5-5.1 Chloride 110 mmol/L High 98-107 Carbon Dioxide 25 mmol/L Normal 21-32 Anion Gap 5 mEq/L Low 8-16 Calcium 8.5 mg/dL Normal 8.5-10.1 Laboratory 08/16/2018 [facility] D-Dimer, 0.32 ug/mL 10 test finding [address] [place] [address] [phone] HPV High Risk 08/13/2018 [facility] HPV High Risk Results on - Alt Ref Lab [address] [place] [address] [phone] Urine Dipstick 08/13/2018 [facility] Ua Color yellow Yellow Ua Clarity clear Clear Ua Leuko negative Negative Ua Nitrite negative Negative Ua Urobilinogen 3.5 umol/L High 0.2 - 1.0 E.U./dL Ua Protein 0.15 g/L High Negative Ua PH 8.5 High 6.5-7.5 Ua Blood negative Negative Ua Specific [place] 1.015 1.010-1.030 Ua Ketones negative Negative Ua Bilirubin negative Negative Ua Glucose negative Negative Chlam/GC/Trichomonas 08/13/2018 [facility] [address] Ur Trichomonas NEGATIVE Negative PCR, Ur [address] vaginalis,[place] [address] [phone] Ur Chlamydia trachomatis,PCR NEGATIVE Negative Ur Neisseria gonorrhoeae,PCR NEGATIVE Negative 13 Affirm 08/13/2018 [facility] [address] Trichomonas Negative [Negative] Vaginitis [address] [place] [address] [phone] Gardnerella vaginalis POSITIVE Abnormal [Negative] Kellie species [...] K/uL 0.3 Low 1.2 - 3.7 Thou/uL [place] # K/uL 0.2 0.2 - 0.9 Thou/uL Eos # K/uL 0.0 0.0 - 0.4 Thou/uL Baso # K/uL 0.0 0.0 - 0.1 Thou/uL Nucl RBC % 0.0 0.0 - 0.2 /100 WBC Nucl RBC # K/uL 0.0 0.0 - 0.0 Thou/uL Imm Granulocytes # 0.1 Thou/uL Imm Granulocytes 0.8 % 1 [id number] 2 SEE RESULT BELOW Name: MARTY MORLEY : [address]: Racheal Edwards MD Acct: [id number] Unit: [id number] AGE: 23 Location: [facility] Re11/01/18 SEX: F Status: DEP ER SPEC: [id number] KATE: 11/01/[address] [facility] [address]: Racheal Edwards MD REQ: [id number] RECD: 11/02/18 STATUS: ROHIT SWEENEY DR: Kari Galeas PA _ SOURCE: URINE SPDESC: ORDERED: Urine Culture COMMENTS: [id number] Procedure Result Reported Site Urine Culture Final 11/04/18- 0835 ML Few Enterobacteriacae; possible contamination. * ML - Main Lab . END OF REPORT DEPARTMENT OF PATHOLOGY, [address] [place] [address] Kelvin Gracia M.D. Director [facility] # [id number] 3 Mri Specialist: [id number] Test Disclaimer: Positive bacteria, red blood cells, white blood cells, early , low specific gravity, and other factors may cause false positive or negative results. It is recommended to retest unexpected and borderline results with a serum test when applicable. If is still suspected, please repeat test after 48 to 72 hours. 4 Mri Specialist: [id number] 5 PELVIC PAIN, POSITIVE TEST 6 URINE, [...] DVT, or Pulmonary embolism as clinically indicated. ([facility] has established a 97.89% negative predictive value for thrombotic disease when a cutoff value of 0.5 ug/mL is used.) 11 Z11.3 Z00.01 12 Hard copy of report to be sent by mail Report may be viewed in Clinical Review, or in PCI under Medical Record Forms 13 A negative result for either C. trachomatis and/or N. gonorrhoeae does not preclued an infection because results are dependent on adequate specimen collection, absence of inhibitors, and sufficient DNA to be detected. 14 Method: BD Affirm VPIII DNA Probe Assay Procedures Description No Information Available Medical Devices Description No Information Available Encounters Type Date Location Provider Dx Diagnosis Office Visit 12/31/2018 [facility] Kari Dias PA F41.0 Panic disorder 2:30p [address] [episodic paroxysmal anxiety] K52.9 Noninfective gastroenteritis and colitis, unspecified D48.62 Neoplasm of uncertain behavior of left breast Office Visit 12/03/2018 1:45p Kari Dobbins, F41.[address] PA [episodic paroxysmal anxiety] K52.9 Noninfective gastroenteritis and colitis, unspecified D48.62 Neoplasm of uncertain behavior of left breast Office Visit 08/13/2018 11:15a [facility] Kari Dias, Z00.01 Encounter for Jluis PROCTOR general adult medical exam w abnormal findings [...] of cervix Office Visit 08/07/2018 4:30p [facility] Sarah French, H66.[address] SANITARIAN AIDE otitis media w spon rupt ear drum, right ear H91.92 Unspecified hearing loss, left ear F41.0 Panic disorder [episodic paroxysmal anxiety] B37.3 Candidiasis of vulva and vagina R51 Headache Z71.9 Counseling, unspecified Office Visit 07/31/2018 11:30a [facility] Kari Dias, H66.[address] PA otitis media w spon rupt ear drum, right ear H91.92 Unspecified hearing loss, left ear Office Visit 07/24/2018 4:15p [facility] Kari Dias, R11.2 Nausea with Jluis PROCTOR vomiting, unspecified F41.0 Panic disorder [episodic paroxysmal anxiety] Office Visit 07/16/2018 11:00a [facility] Kari Dias, F41.[address] PA [episodic paroxysmal anxiety] F31.9 Bipolar disorder, unspecified Assessments Date Code Description Provider 01/03/2019 F41.0 Panic disorder [episodic paroxysmal anxiety] Kari Galeas PA 01/03/2019 K52.9 Noninfective gastroenteritis and colitis, Kari Galeas PA unspecified 01/03/2019 F41.9 Anxiety disorder, unspecified Kari Galeas PA 12/31/2018 F41.0 Panic disorder [episodic paroxysmal anxiety] Kari Galeas PA 12/31/2018 K52.9 Noninfective gastroenteritis and colitis, Kari Gaelas PA unspecified 12/31/2018 D48.62 Neoplasm of uncertain behavior of left breast Kari Galeas PA 12/03/2018 F41.0 Panic disorder [episodic paroxysmal anxiety] [...] French FNP 08/07/2018 R51 Headache Sarah French [facility] 08/07/2018 Z71.9 Counseling, unspecified Sarah French [facility] 07/31/2018 H66.011 Acute suppurative otitis media with [...] unspecified Kari Galeas PA Plan of Treatment 01/03/2019 - Kari Galeas PAF41.0 Panic disorder [episodic paroxysmal anxiety] Comments:Refill of Clonazepam sent. PC to pharmacy to request early fill. Controlled substance contract signed. Urine tox screen collected.K52.9 Noninfective gastroenteritis and colitis, unspecifiedComments:Provide abundant clear fluids.[place] foods as tolerated. Avoid all dairy other than yogurt.Eat cheesewith cautionMay try acidophilus/probiotic, which is available in the vitamin section at the drug store.F41.9 Anxiety disorder, unspecifiedComments: Counselling established at [facility] with Mi Najera. The plan is to make arrangements through[facility] for evaluation and treatment by psychiatrist. Functional Status Description No Information Available Mental Status Description No Information Available Referrals Refer to Reason for Referral Status Appt Date Gil Livingston MD Urgent referral to resume treatment. Patient Declined Patient notes hx of colitis and symptoms have flared up terrifically lately. [address] [facility] [address] [place] [address] [phone] [facility] 23yo female patient wants to get re-established Closed 08/26/2018 with an ENT for possible sinus surgery that she was told she was a candidate for in the past. Of note, she is currently recovering from a ruptured right TM. [address] [place] [address] [phone] Josh Cat MD Previous patient. Continues with Patient Declined 2018 Migraines. sunday are good for pt [address] [place] [address] [phone]
--- OUTSIDE RECORDS SUMMARY | 2019-01-13 17:53 | XMS REPORT | Continuity of Care Document ---
:1995 External Reference #:[id number] Author Name Kari Galeas PA Address [address] [place] [address] Care Team Providers Name Role Phone Kari Galeas PA - Medical Care Team Information Project Management Professor [phone] Problems Active Problems Provider Date Allergic rhinitis [...] smokes 1/2 Pack Daily Smoking Status Reviewed: 12/31/18 currently smokes 1/2 Pack Daily Smokeless Tobacco [...] take 1 tablet by 30tabs K52.9 Sarah Donaldson, 2018 mouth every 4 MD 0.125mg Tablets hours as needed for abnormal function of the digestive system Clonazepam 1 tab by mouth 90tabs Sarah Donaldson, 07/23/2018 0.5mg three times a day MD Tablets as needed for panic . temporary sig change ref #[id number] Quetiapine Fumarate take 1 tablet by 30tabs [...] headache Diflucan take 1 tablet by 2tabs Saarh French, 08/07/2018 - 150mg Tablets mouth one time. ASSISTANT CURATOR 08/13/2018 may repeat in 1 week if necessary. Clonazepam 1 tab by mouth 75tabs Mendoza 07/22/2018 - 0.5mg Tablets every morning, 1 MD Sarah 07/23/2018 Dispers 1/2 every evenning Reference #[id number] Immunizations Description No Information Available Vital Signs Date Vital Result Comment 12/31/2018 2:37pm BP Systolic 118 mmHg BP Diastolic 64 mmHg Body Temperature 99.2 F Heart Rate 96 /min Respiratory Rate 17 /min Height 65.5 inches 5'5.50" Weight 135.44 lb BMI (Body Mass Index) 22.2 kg/m2 BSA (Body Surface Area) 1.69 m2 [place] body weight in kilograms 58 kg O2 % BldC Oximetry 98 % 12/03/2018 1:50pm BP Systolic 98 mmHg BP Diastolic 60 mmHg Body Temperature 98.5 F Heart Rate 92 /min Respiratory Rate 18 /min Height 63 inches 5'3" Weight 137.50 lb BMI (Body Mass Index) 24.4 kg/m2 BSA (Body Surface Area) 1.65 m2 [place] body weight in kilograms 52 kg O2 % BldC Oximetry 97 % Results Test Date Facility Test Result H/L Range Note Urine Culture And [facility] Urine SEE RESULT 1, 2 Sensitivities 2 [phone] Culture BELOW Laboratory test [facility] Poc Negative Negative 3 finding 4 [phone] , Urine Poc Urinalysis [facility] Poc Glucose, Negative Negative 3 [phone] Urine Poc Bilirubin, Urine 1+ Abnormal Negative Poc Ketone, Urine Trace Abnormal Negative Poc Specific [place], Urine 1.025 Normal 1.010-1.030 Poc Blood, Urine 3+ Abnormal Negative Poc pH, Urine 6.5 Normal 5-9 Poc Protein, Urine 2+ Abnormal Negative Poc Urobilinogen, Urine 1.0 Negative Poc Nitrite, Urine Negative Negative Poc Leukocytes, Urine 1+ Abnormal Negative Poc Color, Urine Yellow Poc Clarity, Urine Clear 4 CBC W/Automated 09/14/2018 [facility] White Blood 7.7 K/uL Normal 3.1-10.7 [address] Count [place], [place] [address] [phone] Red Blood Count 4.68 M/uL Normal 3.90-5.40 [...] 40.4-72.8 Lymph % 27.0 % Normal 20.0-42.0 [place] % 8.0 % Normal 4.3-13.2 Eo% 2.1 % Normal 0.0-6.6 Bas% 0.4 % Normal 0.0-1.1 Immature Grans 0.5 % Normal 0.0-5.0 NRBC % 0.0 /100WBC < 10/ 100 WBC Neut# 4.78 K/uL Normal 1.8-7.0 Lymph # 2.08 K/uL Normal 1.0-4.0 [place] # 0.62 K/uL Normal 0.3-0.9 Eos # 0.16 K/uL Normal 0.0-0.5 Baso # 0.03 K/uL Normal 0.0-0.1 Immature Grans Absolute 0.04 K/uL NRBC # 0.00 K/uL Ua RFX Micro & Culture 09/14/2018 [facility] Urine Color YELLOW Yellow II [address] [place] [address] [phone] Urine Clarity CLEAR Clear Urine Glucose - Dipstick NEGATIVE mg/dL Negative Urine Bilirubin - Dipstick NEGATIVE Negative Urine Ketone NEGATIVE mg/dL Negative Urine Specific [place] 1.020 Normal 1.010-1.030 Urine Blood NEGATIVE Negative Urine PH 7.5 Normal 6.5-7.5 Urine Protein - Dipstick NEGATIVE mg/dL Negative Urine Urobilinogen - Dipstick 0.2 E.U./dL Normal 0.2-1.0 Urine Nitrite - Dipstick NEGATIVE Negative Urine Leuk Esterase NEGATIVE Negative Source: URINE, CLEAN CAT <SEE NOTE> 6 Chlam/GC/Trichomonas 09/14/2018 [facility] Ur Trichomonas NEGATIVE Negative PCR, Ur [address] vaginalis,[place] [address] [phone] Ur Chlamydia trachomatis,PCR NEGATIVE Negative Ur Neisseria gonorrhoeae,PCR NEGATIVE Negative 7 Basic Metabolic Panel 08/16/2018 [facility] Glucose 85 mg/dL Normal 74-106 8 [address] [place] [address] [phone] BUN 8 mg/dL Normal 7-18 Creatinine 0.6 mg/dL Normal 0.6-1.3 Glom Filtration Rate, Estimate >60 mL/min >60 If >60 mL/min >60 9 BUN/Creat 13.3 ratio Sodium 140 mmol/L Normal 136-145 Potassium 3.6 mmol/L Normal 3.5-5.1 Chloride 110 mmol/L High 98-107 Carbon Dioxide 25 mmol/L Normal 21-32 Anion Gap 5 mEq/L Low 8-16 Calcium 8.5 mg/dL Normal 8.5-10.1 Laboratory 08/16/2018 [facility] D-Dimer, 0.32 ug/mL 10 test finding [address] [place] [address] [phone] HPV High Risk 08/13/2018 [facility] HPV High Risk Results on - Alt Ref Lab [address] [place] [address] [phone] Urine Dipstick 08/13/2018 [facility] Ua Color yellow Yellow Ua Clarity clear Clear Ua Leuko negative Negative Ua Nitrite negative Negative Ua Urobilinogen 3.5 umol/L High 0.2 - 1.0 E.U./dL Ua Protein 0.15 g/L High Negative Ua PH 8.5 High 6.5-7.5 Ua Blood negative Negative Ua Specific [place] 1.015 1.010-1.030 Ua Ketones negative Negative Ua Bilirubin negative Negative Ua Glucose negative Negative Chlam/GC/Trichomonas 08/13/2018 [facility] [address] Ur Trichomonas NEGATIVE Negative PCR, Ur [address] vaginalis,[place] [address] [phone] Ur Chlamydia trachomatis,PCR NEGATIVE Negative Ur Neisseria gonorrhoeae,PCR NEGATIVE Negative 13 Affirm 08/13/2018 [facility] [address] Trichomonas Negative [Negative] Vaginitis [address] [place] [address] [phone] Gardnerella vaginalis POSITIVE Abnormal [Negative] Kellie species [...] K/uL 0.3 Low 1.2 - 3.7 Thou/uL [place] # K/uL 0.2 0.2 - 0.9 Thou/uL Eos # K/uL 0.0 0.0 - 0.4 Thou/uL Baso # K/uL 0.0 0.0 - 0.1 Thou/uL Nucl RBC % 0.0 0.0 - 0.2 /100 WBC Nucl RBC # K/uL 0.0 0.0 - 0.0 Thou/uL Imm Granulocytes # 0.1 Thou/uL Imm Granulocytes 0.8 % 1 [id number] 2 SEE RESULT BELOW Name: SUNMARTY Lev : [address]: Racheal Edwards MD Acct: [id number] Unit: [id number] AGE: 23 Location: [facility] Re11/01/18 SEX: F Status: DEP ER SPEC: [id number] KATE: 11/01/18-[address] [facility] [address]: Racheal Edwards MD REQ: [id number] RECD: 11/02/18 STATUS: ROHIT SWEENEY DR: Kari PROCTOR _ SOURCE: URINE SPDESC: ORDERED: Urine Culture COMMENTS: [id number] Procedure Result Reported Site Urine Culture Final 11/04/18- 0835 ML Few Enterobacteriacae; possible contamination. * ML - Main Lab . END OF REPORT DEPARTMENT OF PATHOLOGY, [address] [place] [address] Kelvin Gracia M.D. Director [facility] # [id number] 3 Spinner Cap Frame: [id number] Test Disclaimer: Positive bacteria, red blood cells, white blood cells, early , low specific gravity, and other factors may cause false positive or negative results. It is recommended to retest unexpected and borderline results with a serum test when applicable. If is still suspected, please repeat test after 48 to 72 hours. 4 Spinner Cap Frame: [id number] 5 PELVIC PAIN, POSITIVE TEST 6 URINE, [...] DVT, or Pulmonary embolism as clinically indicated. ([facility] has established a 97.89% negative predictive [...] Date Location Provider Dx Diagnosis Office Visit 12/03/2018 [facility] Kari Dias PA F41.0 Panic disorder 1:45p [address] [episodic paroxysmal anxiety] K52.9 Noninfective gastroenteritis and colitis, unspecified D48.62 Neoplasm of uncertain behavior of left breast Office Visit 08/13/2018 11:15a [facility] Kari Dias, Z00.01 Encounter for Jluis SALDIVAR PA general adult medical exam w abnormal findings [...] Sarah French, H66.[address] ASSISTANT CURATOR otitis media w spon rupt ear drum, right ear H91.92 Unspecified hearing loss, left ear F41.0 Panic disorder [episodic paroxysmal anxiety] B37.3 Candidiasis of vulva and vagina R51 Headache Z71.9 Counseling, unspecified Office Visit 07/31/2018 11:30a [facility] Kari Dias, H66.[address] PA otitis media w spon rupt ear drum, right ear H91.92 Unspecified hearing loss, left ear Office Visit 07/24/2018 4:15p Kari Dobbins, R11.[address] PA vomiting, unspecified F41.0 Panic disorder [episodic paroxysmal anxiety] Office Visit 07/16/2018 11:00a Kari Dobbins F41.[address] PA [episodic paroxysmal anxiety] F31.9 Bipolar disorder, unspecified Assessments Date Code Description Provider 12/31/2018 F41.0 Panic disorder [episodic paroxysmal anxiety] Kari Galeas PA 12/31/2018 K52.9 Noninfective gastroenteritis and colitis, Kari Galeas PA unspecified 12/31/2018 D48.62 Neoplasm of uncertain [...] unspecified Kari Galeas PA Plan of Treatment 12/31/2018 - Kari Galeas, PAF41.0 Panic disorder [episodic paroxysmal anxiety] Comments:Meds refilled. Please call [facility] to see if you can resume the intake process.K52.9 Noninfective gastroenteritis and colitis, unspecifiedComments: Appt with Dr. Livingston missed. Please call to reschedule.D48.62 Neoplasm of uncertain behavior of left breastComments:No cells present in Breast Biopsy. Will repeat sono of left breast after CBE in 3 months. Functional Status Description No Information Available Mental Status Description No Information Available Referrals Refer to Reason for Referral Status Appt Date Gil Livingston MD Urgent referral to resume treatment. Patient Scheduled 12/19/2018 notes hx of colitis and symptoms have flared up terrifically lately. [address] [facility] [address] [place] [address] [phone] [facility] 23yo female patient wants to get re-established Closed 08/26/2018 with an ENT for possible sinus surgery that she was told she was a candidate for in the past. Of note, she is currently recovering from a ruptured right TM. [address] [place] [address] [phone] Josh Cat MD Previous patient. Continues with Migraines. sunday Sent 12/24/2018Sunday are good for pt [address] [place] [address] [phone]
[2019-01-13 18:09] VITALS: BP 106/63
--- NOTE | 2019-01-13 19:34 | UC ---
Abdominal Pain Female HPI - HPI Summary HPI Summary: 23-year-old female presents with 3 day history of right upper quadrant and flank pain as well as pelvic pressure. Symptoms are associated with some mild nausea and fatigue. Patient reports she has a history of colitis. States she was seen by GI at [facility] and told that they believe she may have either Crohn's or ulcerative colitis however she had an adverse reaction to the anesthesia during her upper endoscopy and they were unable to complete the study for a definitive diagnosis. Patient also reports history of kidney stones. Last BM was yesterday. Reports loose brown stool. She is actively trying to get . Last menstrual period 2 months ago but she has been irregular. Denies fever, chills, sore throat, cough, chest pain, shortness of breath, vomiting, blood in stool, melena, dysuria, frequency, urgency, hematuria, vaginal discharge, or dyspareunia. - History of Current Complaint Chief Complaint: UCAbdominalPain Stated Complaint: PELVIC/RIB PAIN Time Seen by Provider: 01/13/19 18:46 Hx Obtained From: Patient Hx Last Menstrual Period: mid november, Pain Intensity: 4 Allergies/Adverse Reactions: Allergies Allergy/AdvReac Type Severity Reaction Status Date / Time Adhesive Tape Allergy Intermediate SKIN SWELLS Verified 01/13/19 17:59 azithromycin Allergy Vomiting Verified 01/13/19 17:59 latex Allergy Swelling Verified 01/13/19 17:59 shellfish derived Allergy Wheezing Verified 01/13/19 17:59 Home Medications: Home Medications Albuterol HFA INHALER* [Ventolin HFA Inhaler*] 1 - 2 puff INH Q4H PRN 01/13/19 [ History Confirmed 01/13/19] PMH/Surg Hx/FS Hx/Imm Hx GI/ History: Kidney Stones, Other - Colitis Psychological History: Anxiety - Panic disorder - Surgical History Surgical History: Yes Surgery Procedure, Year, and Place: 15 GI bx r/t c.diff - Family History Known Family History: Positive: Non-Contributory - Social History Occupation: Employed Full-time Lives: With Family Alcohol Use: None Substance Use Type: Marijuana Smoking Status (MU): Heavy Every Day Tobacco Smoker Type: Cigarettes Amount Used/How Often: 1/2 PPD Length of Time of Smoking/Using Tobacco: age 11 Have You Smoked in the Last Year: Yes Household Exposure Type: Cigarettes - Immunization History Most Recent Influenza Vaccination: none Most Recent Tetanus Shot: AGE 19 Review of Systems All Other Systems Reviewed And Are Negative: Yes Constitutional: Negative: Fever, Chills Skin: Negative: Rash Respiratory: Negative: Shortness Of Breath, Cough Cardiovascular: Negative: Palpitations, Chest Pain Gastrointestinal: Positive: Abdominal Pain, Nausea. Negative: Vomiting, Diarrhea Genitourinary: Positive: Other - Pelvic pressure. Negative: Dysuria, Hematuria , Frequency, Urgency, Vaginal/Penile Discharge, Abnormal Bleeding Musculoskeletal: Positive: Negative Neurological: Positive: Negative Is Patient Immunocompromised?: No Physical Exam - Summary Physical Exam Summary: GENERAL APPEARANCE: Well developed, well nourished, alert and cooperative, and appears to be in no acute distress. EYES: Conjunctiva clear. No drainage. EARS: External auditory canals and tympanic membranes clear, hearing grossly intact. NOSE: No nasal discharge. THROAT: Pharynx normal. No tonsilar inflammation, swelling, exudate, or lesions. Uvula midline. NECK: Neck supple, non-tender without lymphadenopathy. CARDIAC: Normal S1 and S2. No S3, S4 or murmurs. Rhythm is regular. There is no peripheral edema, cyanosis or pallor. Extremities are warm and well perfused. Capillary refill is less than 2 seconds. Peripheral pulses intact. LUNGS: Clear to auscultation without rales, rhonchi, wheezing or diminished breath sounds. ABDOMEN: Positive bowel sounds. Soft, nondistended. RUQ and RLQ tenderness without guarding or rebound. No masses or hepatosplenomegally. No CVA tenderness. MUSKULOSKELETAL: ROM intact to all extremities. No joint erythema or tenderness. Normal muscular development. Normal gait. SKIN: Skin normal color, texture and turgor with no lesions or eruptions. Triage Information Reviewed: Yes Vital Signs: Initial Vital Signs Temp 98.3 F 01/13/19 18:00 Pulse 82 01/13/19 18:00 Resp 15 01/13/19 18:00 BP 106/63 01/13/19 18:00 Pulse Ox 98 01/13/19 18:00 Vital Signs Reviewed: Yes Abd Pain Female Course/Dx - Course Course Of Treatment: 23-year-old female presents with 3 day history of right upper quadrant and flank pain as well as pelvic pressure. Symptoms are associated with some mild nausea and fatigue. Patient reports she has a history of colitis. States she was seen by GI at [facility] and told that they believe she may have either Crohn's or ulcerative colitis however she had an adverse reaction to the anesthesia during her upper endoscopy and they were unable to complete the study for a definitive diagnosis. Patient also reports history of kidney stones. Last BM was yesterday. Reports loose brown stool. She is actively trying to get . Last menstrual period 2 months ago but she has been irregular. Denies fever, chills, sore throat, cough, chest pain, shortness of breath, vomiting, blood in stool, melena, dysuria, frequency, urgency, hematuria, vaginal discharge, or dyspareunia. Afebrile. Vital signs stable. Patient had a soft, nondistended abdomen with normal bowel sounds, tenderness to the right upper and right lower quadrants without guarding or rebound, no CVA tenderness, and otherwise unremarkable exam. [id number] urinalysis was normal. Urine was negative. Discussed with the patient that based on her past history persistent pain and I'm recommending that she be evaluated in the emergency room at this time. Patient is agreeable to this and is electing to transport via private vehicle. - Differential Dx/Diagnosis Differential Diagnosis: Appendicitis, Constipation, Irritable Bowel Syndrome, Pelvic Inflammatory Disease, , Renal Colic, Urinary Tract Infection, Other - Colitis Provider Diagnosis: Acute abdominal pain in right upper quadrant, Acute pain in female pelvis Discharge ED - Sign-Out/Discharge Documenting (check all that apply): Patient Departure All imaging exams completed and their final reports reviewed: No Studies - Discharge Plan Condition: Stable Disposition: HOME Referrals: Kari Galeas PA [Primary Care Provider] - Additional Instructions: The urine test performed in the clinic tonight was normal and the test was negative. With your history of colitis I would recommend that you be evaluated in the emergency room at this time. Do not eat or drink anything until you have been evaluated. Please go directly to the emergency room at this time. - Billing Disposition and Condition Condition: STABLE Disposition: Home
== END 2019-01-13 19:41 | disposition home or self-care (01) ==
LOC: UCCORT 17:38
DX: R10.11 Right upper quadrant pain (principal); Z87.442 Personal history of urinary calculi; R10.2 Pelvic and perineal pain; Z88.1 Allergy status to other antibiotic agents; F17.210 Nicotine dependence, cigarettes, uncomplicated
CPT/HCPCS: 81003; 84702; 99212; G0463

== ENCOUNTER 2019-02-22 12:04 | Emergency (ER) | payer SELFPAY ==
[2019-02-22 14:06] VITALS: BP 111/76
--- NOTE | 2019-02-22 14:22 | UC ---
Throat Pain/Nasal Leo HPI - HPI Summary HPI Summary: 23-year-old female presents with one-week history of URI symptoms. States started with a sore throat and then developed nasal congestion, sinus pressure, and a occasional a productive cough. Has been taking DayQuil with relief in symptoms. Reports history of recurrent ear infections. States has some ear fullness and popping been no pain at present. Has had some loose stools. States family members are sick with similar symptoms. Denies fever, chills, dysphagia, chest pain, shortness of breath, abdominal pain, or vomiting. - History of Current Complaint Chief Complaint: UCRespiratory Stated Complaint: SORE THROAT,COUGH Time Seen by Provider: 02/22/19 14:02 Hx Obtained From: Patient Hx Last Menstrual Period: 01/22/19 Pain Intensity: 0 - Allergies/Home Medications Allergies/Adverse Reactions: Allergies Allergy/AdvReac Type Severity Reaction Status Date / Time Adhesive Tape Allergy Intermediate SKIN SWELLS Verified 02/22/19 14:09 azithromycin Allergy Vomiting Verified 02/22/19 14:09 haloperidol [From Haldol] Allergy Itching Verified 02/22/19 14:09 latex Allergy Swelling Verified 02/22/19 14:09 shellfish derived Allergy Wheezing Verified 02/22/19 14:09 Home Medications: Home Medications Divalproex ER TAB(*) [Depakote ER TAB(*)] 500 mg PO DAILY 02/22/19 [History Confirmed 02/22/19] PMH/Surg Hx/FS Hx/Imm Hx Previously Healthy: Yes Psychological History: Bipolar Disorder, Other - ADHD - Surgical History Surgical History: Yes Surgery Procedure, Year, and Place: 15 GI bx r/t c.diff - Family History Known Family History: Positive: Non-Contributory - Social History Occupation: Employed Full-time Lives: Alone Alcohol Use: None Substance Use Type: Marijuana Smoking Status (MU): Heavy Every Day Tobacco Smoker Type: Cigarettes Amount Used/How Often: 1/2 PPD Length of Time of Smoking/Using Tobacco: age 11 Have You Smoked in the Last Year: Yes Household Exposure Type: Cigarettes - Immunization History Most Recent Influenza Vaccination: none Most Recent Tetanus Shot: AGE 19 Review of Systems All Other Systems Reviewed And Are Negative: Yes Constitutional: Negative: Fever, Chills Eyes: Negative: Drainage, Eye Redness ENT: Positive: Sore Throat, Nasal Discharge, Sinus Congestion, Sinus Pain/ Tenderness. Negative: Ear Ache Respiratory: Positive: Cough. Negative: Shortness Of Breath Cardiovascular: Negative: Palpitations, Chest Pain Gastrointestinal: Positive: Diarrhea. Negative: Abdominal Pain, Vomiting, Nausea Genitourinary: Positive: Negative Musculoskeletal: Positive: Negative Neurological: Positive: Negative Is Patient Immunocompromised?: No Physical Exam - Summary Physical Exam Summary: GENERAL APPEARANCE: Well developed, well nourished, alert and cooperative, and appears to be in no acute distress. EYES: Conjunctiva clear. No drainage. EARS: External auditory canals and tympanic membranes clear, hearing grossly intact. NOSE: Mild-moderate nasal congestion. No nasal discharge. THROAT: Pharyngeal erythema with post-nasal drip. No tonsilar inflammation, swelling, exudate, or lesions. Uvula midline. NECK: Neck supple, non-tender without lymphadenopathy. CARDIAC: Normal S1 and S2. No S3, S4 or murmurs. Rhythm is regular. There is no peripheral edema, cyanosis or pallor. Extremities are warm and well perfused. Capillary refill is less than 2 seconds. Peripheral pulses intact. LUNGS: Clear to auscultation without rales, rhonchi, wheezing or diminished breath sounds. Non-productive cough. ABDOMEN: Positive bowel sounds. Soft, nondistended, nontender. No guarding or rebound. No masses or hepatosplenomegally. MUSKULOSKELETAL: ROM intact to all extremities. No joint erythema or tenderness. Normal muscular development. Normal gait. SKIN: Skin normal color, texture and turgor with no lesions or eruptions. Triage Information Reviewed: Yes Vital Signs: Initial Vital Signs Temp 97.4 F 02/22/19 13:59 Pulse 94 02/22/19 13:59 Resp 18 02/22/19 13:59 BP 111/76 02/22/19 13:59 Pulse Ox 100 02/22/19 13:59 Vital Signs Reviewed: Yes Throat Pain/Nasal Course/Dx - Course Course Of Treatment: 23-year-old female presents with one-week history of URI symptoms. States started with a sore throat and then developed nasal congestion, sinus pressure, and a occasional a productive cough. Has been taking DayQuil with relief in symptoms. Reports history of recurrent ear infections. States has some ear fullness and popping been no pain at present. Has had some loose stools. States family members are sick with similar symptoms. Denies fever, chills, dysphagia, chest pain, shortness of breath, abdominal pain, or vomiting. Afebrile. Vital signs stable. Patient had moderate nasal congestion, clear. TMs, pharyngeal erythema with postnasal drip, no tonsillar swelling or exudate, no cervical lymphadenopathy, clear bilateral breath sounds, a nonproductive cough, and otherwise unremarkable exam. Discussed with the patient that she likely has a viral upper respiratory infection and recommending symptomatically treatment at this time. Patient expressed to me that her insurance lapsed and is currently pending and is concerned that if her symptoms persist that she will develop another ear infection based on her past experience. I have offered to send in a prescription for amoxicillin 875 mg twice daily 10 days that she could fill if her symptoms persisted or worsened but strongly encouraged her to continue with symptomatic care at this time. She is to follow-up with her primary care provider in 3-5 days if symptoms are not improving. Anticipatory guidance and warning symptoms were reviewed with the patient. Verbalizes understanding and agrees with plan of care. - Differential Dx/Diagnosis Differential Diagnosis/HQI/PQRI: Mononucleosis, Peritonsillar Abscess, Pharyngitis, Sinusitis, Tonsillitis, URI Provider Diagnosis: URI (upper respiratory infection) Discharge ED - Sign-Out/Discharge Documenting (check all that apply): Patient Departure All imaging exams completed and their final reports reviewed: No Studies - Discharge Plan Condition: Stable Disposition: HOME Prescriptions: Amoxicillin PO (*) [Amoxicillin 875 MG (*)] 875 mg PO BID #20 tab Patient Education Materials: Upper Respiratory Infection (ED) Referrals: Albert Connelly MD [Primary Care Provider] - 3 Days (If no improvement.) Additional Instructions: As we discussed, your history and exam are consistent with a viral upper respiratory infection. Viral infections do not respond to antibiotics and are limited to the treatment of symptoms. Viral infections typically run their course in 7-10 days. With your history of recurrent ear infections I will send in a prescription for an antibiotic that you can fill in a couple days of symptoms persist or worsen. Take amoxicillin 875 mg twice daily for 10 days. Take with food to avoid upset stomach. Be sure to finish the entire course even if feeling better. Drink plenty of fluids to avoid dehydration especially if you are running any fever. Use an over the counter decongestant such as Sudafed according to directions to help with the nasal congestion. Take over the counter acetaminophen (Tylenol) or ibuprofen (Advil, Motrin) according to directions as needed for pain or fever. Use salt water gargles several times a day if you have a sore throat. You may also use Chloraseptic spray or Cepacol lonzenges according to directions which contain a numbing medication and can provide some temporary relief from your sore throat. Follow up with your primary care provider in 3-5 days if symptoms persist. Seek immediate medical attention in the emergency room if you have fever greater than 100.5 F despite taking acetaminophen or ibuprofen, have chest pain , difficulty breathing, are unable to swallow, or have any worsening of symptoms. - Billing Disposition and Condition Condition: STABLE Disposition: Home - Attestation Statements Provider Attestation: I was available for consult. This patient was seen by the [facility]OX[facility]. The patient was not presented to , seen by or examined by in -Malia Garcia MD
== END 2019-02-22 14:59 | disposition home or self-care (01) ==
LOC: UCCORT 12:04
DX: J06.9 Acute upper respiratory infection, unspecified (principal); F31.9 Bipolar disorder, unspecified; F90.9 Attention-deficit hyperactivity disorder, unspecified type; R19.7 Diarrhea, unspecified; F17.210 Nicotine dependence, cigarettes, uncomplicated; Z91.040 Latex allergy status; Z91.013 Allergy to seafood; Z91.09 Other allergy status, other than to drugs and biological substances; Z88.1 Allergy status to other antibiotic agents; Z88.8 Allergy status to other drugs, medicaments and biological substances; Z79.899 Other long term (current) drug therapy
CPT/HCPCS: 99212; G0463

== ENCOUNTER 2019-04-22 19:50 | Emergency (ER) | payer OTHER ==
[2019-04-22 20:21] VITALS: BP 116/74
--- NOTE | 2019-05-14 22:03 | UC ---
Abdominal Pain Female HPI - HPI Summary HPI Summary: 23 year old female s/p 2 vaginal deliveries presents with rectal pain x 24 hours. ++ severe with bowel movements, did notice bleeding iwth BM. No abdominal pain, no N/V. + h/o hemorrhoids in past, not this severe. NO fever, chills. appetite oK. - History of Current Complaint Chief Complaint: UCGU Stated Complaint: PERSONAL Time Seen by Provider: 04/22/19 20:28 Hx Obtained From: Patient Hx Last Menstrual Period: 04/01/19 ?: No Onset/Duration: Sudden Onset, Lasting Days Timing: Constant Severity Initially: Moderate Severity Currently: Moderate Pain Intensity: 8 Pain Scale Used: 0-10 Numeric Allergies/Adverse Reactions: Allergies Allergy/AdvReac Type Severity Reaction Status Date / Time Adhesive Tape Allergy Intermediate SKIN SWELLS Verified 05/13/19 20:03 azithromycin Allergy Vomiting Verified 05/13/19 20:03 haloperidol [From Haldol] Allergy Itching Verified 05/13/19 20:03 latex Allergy Swelling Verified 05/13/19 20:03 shellfish derived Allergy Wheezing Verified 05/13/19 20:03 PMH/Surg Hx/FS Hx/Imm Hx Previously Healthy: Yes - Surgical History Surgical History: Yes Surgery Procedure, Year, and Place: 15 GI bx r/t c.diff - Family History Known Family History: Positive: Non-Contributory - Social History Alcohol Use: None Substance Use Type: Marijuana Smoking Status (MU): Heavy Every Day Tobacco Smoker Type: Cigarettes Amount Used/How Often: 1/2 PPD Length of Time of Smoking/Using Tobacco: age 11 Have You Smoked in the Last Year: Yes Household Exposure Type: Cigarettes - Immunization History Most Recent Influenza Vaccination: none Most Recent Tetanus Shot: AGE 19 Review of Systems All Other Systems Reviewed And Are Negative: Yes Constitutional: Positive: Negative Gastrointestinal: Positive: Other - rectal pain. Negative: Abdominal Pain, Vomiting, Diarrhea Genitourinary: Positive: Abnormal Bleeding Is Patient Immunocompromised?: No Physical Exam Triage Information Reviewed: Yes Appearance: Well-Appearing, No Pain Distress, Well-Nourished Vital Signs: Initial Vital Signs Temp 99.3 F 04/22/19 20:15 Pulse 97 04/22/19 20:15 Resp 16 04/22/19 20:15 BP 116/74 04/22/19 20:15 Pulse Ox 100 04/22/19 20:15 Vital Signs Reviewed: Yes Eyes: Positive: Conjunctiva Clear ENT: Positive: Hearing grossly normal Abdomen Description: Positive: Nontender, No Organomegaly, Soft. Negative: Bruit, Distended, Guarding, Hepatomegaly, Splenomegaly Bowel Sounds: Positive: Present Pelvic Exam: Positive: Other - rectal exam- TTP over ~ 12 position with thrombosed hemorrhoid noted, no bleeding, no fissures noted. Abd Pain Female Course/Dx - Course Course Of Treatment: - Anusol hydrocortisone suppository every 12 hours as needed for pain - Dibucaine as needed up to 6 times a day for pain externally - Maintain soft stools to prevent hemmorhoids - increase fluid intake - Follow up with GI physician for removal - Differential Dx/Diagnosis Provider Diagnosis: Hemorrhoid Discharge ED - Sign-Out/Discharge Documenting (check all that apply): Patient Departure All imaging exams completed and their final reports reviewed: No Studies - Discharge Plan Condition: Good Disposition: HOME Patient Education Materials: Hydrocortisone (Into the rectum), Hemorrhoids (ED) Referrals: Albert Connelly MD [Primary Care Provider] - Jennifer Mcdonald MD [Medical Doctor] - Additional Instructions: - Anusol hydrocortisone suppository every 12 hours as needed for pain - Dibucaine as needed up to 6 times a day for pain externally - Maintain soft stools to prevent hemmorhoids - increase fluid intake - Follow up with GI physician for removal - Billing Disposition and Condition Condition: GOOD Disposition: Home
== END 2019-04-22 21:21 | disposition home or self-care (01) ==
LOC: UCCORT 19:50
DX: K64.5 Perianal venous thrombosis (principal); Z88.1 Allergy status to other antibiotic agents; Z91.040 Latex allergy status; Z91.013 Allergy to seafood; Z91.048 Other nonmedicinal substance allergy status; F17.210 Nicotine dependence, cigarettes, uncomplicated
CPT/HCPCS: 84702; 99212; G0463

== ENCOUNTER 2019-05-13 18:35 | Emergency (ER) | payer OTHER ==
[2019-05-13 20:09] VITALS: BP 126/64
--- NOTE | 2019-05-13 20:14 | UC ---
FLU HPI - HPI Summary HPI Summary: 23yo female presenting with body aches, chills, subjective fever, nasal congestion, and cough x3 days. Denies sore throat. Patient also notes intermittent nausea and vomiting. States 5-6 episodes of emesis over last 3 days. Denies abdominal pain. Denies current nausea. Last episode before she came. Denies changes in BMs. Denies urinary symptoms. Denies sob and difficulty breathing. Notes decreased appetite but keeping down fluids well. Denies taking anything for symptom relief. - History of Current Complaint Chief Complaint: UCGeneralIllness Stated Complaint: FLU LIKE SYMPTOMS Hx Obtained From: Patient Hx Last Menstrual Period: 04/29/19 Pain Intensity: 4 Pain Scale Used: 0-10 Numeric - Allergy/Home Medications Allergies/Adverse Reactions: Allergies Allergy/AdvReac Type Severity Reaction Status Date / Time Adhesive Tape Allergy Intermediate SKIN SWELLS Verified 05/13/19 20:03 azithromycin Allergy Vomiting Verified 05/13/19 20:03 haloperidol [From Haldol] Allergy Itching Verified 05/13/19 20:03 latex Allergy Swelling Verified 05/13/19 20:03 shellfish derived Allergy Wheezing Verified 05/13/19 20:03 Home Medications: Home Medications Citalopram TAB* [CeleXA TAB*] 20 mg PO DAILY 05/13/19 [History Confirmed ] Ibuprofen TAB* [Motrin TAB* 800 MG] 800 mg PO ONCE 05/13/19 [History Confirmed 05/13/19] PMH/Surg Hx/FS Hx/Imm Hx - Surgical History Surgical History: Yes Surgery Procedure, Year, and Place: 15 GI bx r/t c.diff - Family History Known Family History: Positive: Non-Contributory - Social History Alcohol Use: None Substance Use Type: Marijuana Substance Use Comment - Amount & Last Used: daily Smoking Status (MU): Heavy Every Day Tobacco Smoker Type: Cigarettes Amount Used/How Often: 1/2 PPD Length of Time of Smoking/Using Tobacco: age 11 Have You Smoked in the Last Year: Yes Household Exposure Type: Cigarettes - Immunization History Most Recent Influenza Vaccination: none Most Recent Tetanus Shot: AGE 19 Review of Systems All Other Systems Reviewed And Are Negative: Yes Constitutional: Positive: Fever, Chills ENT: Positive: Sinus Congestion Respiratory: Positive: Cough. Negative: Shortness Of Breath Cardiovascular: Positive: Negative Gastrointestinal: Positive: Vomiting - x5, Nausea. Negative: Abdominal Pain, Diarrhea Genitourinary: Positive: Negative Musculoskeletal: Positive: Myalgia Neurological: Positive: Headache Physical Exam - Summary Physical Exam Summary: Vital Signs Reviewed: Yes A+Ox3, no distress Eyes: Conjunctiva Clear ENT: Hearing grossly normal, TM x 2 clear, moist, uvula midline, no exudate, no erythema Neck: Positive: Supple Respiratory: Positive: No respiratory distress, No accessory muscle use + CTA throughout no w/r Cardiovascular: RRR nl s1, s2 no m/r Abd: soft + BS nt/nd no guarding, no distension Musculoskeletal Exam: CAIN x 4 without difficulty Neurological: Positive: Alert Psychological: Positive: age appropriate behavior Skin: Positive: no rash, no ecchymosis Vital Signs: Initial Vital Signs Temp 99.1 F 05/13/19 20:05 Pulse 98 05/13/19 20:05 Resp 15 05/13/19 20:05 BP 126/64 05/13/19 20:05 Pulse Ox 99 05/13/19 20:05 Lab Results 05/13/19 Range/Units 20:15 Influenza A (Rapid) Negative (Negative) Influenza B (Rapid) Negative (Negative) Flu Course/Dx - Course Course Of Treatment: Negative rapid flu tests. Patient well-appearing and in no pain distress. PE findings and VS normal. Educated on viral illness and symptomatic treatment. Instructed to follow up with pcp for persistent symptoms and to go to ED with any new or worsening symptoms. Patient voiced understanding and agreed with treatment plan. - Differential Dx/Diagnosis Differential Diagnosis/HQI/PQRI: Bronchitis, Influenza, Upper Respiratory Infection Provider Diagnosis: Flu-like symptoms Discharge ED - Sign-Out/Discharge Documenting (check all that apply): Patient Departure All imaging exams completed and their final reports reviewed: No Studies - Discharge Plan Condition: Stable Disposition: HOME Patient Education Materials: Acute Nausea and Vomiting (ED), Viral Syndrome (ED ) Referrals: Albert Connelly MD [Primary Care Provider] - If Needed Additional Instructions: Your flu test was negative today. Your symptoms are likely caused by a virus and should resolve without treatment. You may take over the counter cough and cold medication for symptom relief. Get plenty of rest and increase your fluid intake. Eat a bland diet while symptoms are present. Follow up with your primary care provider if symptoms persist. Return or go to the emergency room with any new or worsening symptoms. - Billing Disposition and Condition Condition: STABLE Disposition: Home - Attestation Statements Provider Attestation: This patient was not seen by me. I was available for consult. Chart reviewed. RIGO
[2019-05-13 20:26] LABS: Influenza A Molecular Negative (Negative); Influenza B Molecular Negative (Negative)
== END 2019-05-13 20:57 | disposition home or self-care (01) ==
LOC: UCCORT 18:35
DX: R09.81 Nasal congestion (principal); R05 Cough; R11.2 Nausea with vomiting, unspecified; M79.10 Myalgia, unspecified site; R51 Headache; F17.210 Nicotine dependence, cigarettes, uncomplicated; Z91.040 Latex allergy status; Z91.013 Allergy to seafood; Z91.09 Other allergy status, other than to drugs and biological substances; Z88.1 Allergy status to other antibiotic agents; Z88.8 Allergy status to other drugs, medicaments and biological substances
CPT/HCPCS: 99211; G0463

== ENCOUNTER 2019-07-23 14:16 | Emergency (ER) | payer OTHER ==
[2019-07-23 14:27] VITALS: BP 121/76
--- NOTE | 2019-07-23 14:52 | ED ---
- HPI Summary HPI Summary: Pt. is a 24 y.o male who presents to the ER for repeat beta HCG. Pt. was seen in ED 2 days ago and was noted to have an elevated Beta HCG and u/s not showing IUP. Pt. states she was having lower abd. cramping this past week and that why she came to ER two days ago. Pt. notes cramping has improved. Pt. states she is unable to get a an apt with her OB and was told to have labs repeats in 2 days so she came back to ED. Pt. denies vaginal bleeding, urinary sxs. A0. Sxs are moderate in severity. No current modifying factors. - History of Current Complaint Chief Complaint: EDOBProblems Stated Complaint: FALL TWO DAYS AGO- ,CRAMPING PER PT Time Seen by Provider: 07/23/19 14:33 Hx Obtained From: Patient Pain Intensity: 0 - Assessment Hx Now: No - Allergies/Home Medications Allergies/Adverse Reactions: Allergies Allergy/AdvReac Type Severity Reaction Status Date / Time Adhesive Tape Allergy Intermediate SKIN SWELLS Verified 07/23/19 14:27 azithromycin Allergy Vomiting Verified 07/23/19 14:27 haloperidol [From Haldol] Allergy Itching Verified 07/23/19 14:27 latex Allergy Swelling Verified 07/23/19 14:27 shellfish derived Allergy Wheezing Verified 07/23/19 14:27 Home Medications: Home Medications QUEtiapine TAB* [Seroquel 25 MG TAB*] 100 mg PO BEDTIME 03/30/18 [History Confirmed 07/23/19] guanFACINE TAB* [Tenex TAB*] 1 mg PO BEDTIME 07/27/18 [History Confirmed ] Divalproex ER TAB(*) [Depakote ER TAB(*)] 500 mg PO DAILY 02/22/19 [History Confirmed 07/23/19] Citalopram TAB* [CeleXA TAB*] 20 mg PO DAILY 05/13/19 [History Confirmed ] Promethazine 25 mg TAB [Phenergan 25 mg TAB] 25 mg PO Q6H PRN 5 Days #20 tab 10/03 [Rx Confirmed 07/23/19] clonazePAM TAB(*) [KlonoPIN TAB(*)] 0.25 mg PO BID 07/21/19 [History Confirmed 07/23/19] clonazePAM TAB(*) [KlonoPIN TAB(*)] 0.5 mg PO QAM 07/21/19 [History Confirmed ] PMH/Surg Hx/FS Hx/Imm Hx Previously Healthy: Yes Endocrine/Hematology History: Denies: Hx Diabetes Cardiovascular History: Denies: Hx Pacemaker/ICD Respiratory History: Reports: Hx Asthma - exercised induced History: Denies: Hx Dialysis Sensory History: Denies: Hx Eye Prosthesis, Hx Legally Blind, Hx Deafness Opthamlomology History: Denies: Hx Eye Prosthesis, Hx Legally Blind - Surgical History Surgery Procedure, Year, and Place: 15 GI bx r/t c.diff Infectious Disease History: No Infectious Disease History: Reports: Hx Clostridium Difficile - 07/2012 Denies: Hx Hepatitis, Hx Human Immunodeficiency Virus (HIV), Hx of Known/ Suspected MRSA, Hx Shingles, Hx Tuberculosis, Hx Known/Suspected VRE, Hx Known/ Suspected VRSA, History Other Infectious Disease, Traveled Outside the in Last 30 Days - Family History Known Family History: Positive: Non-Contributory - Social History Alcohol Use: None Substance Use Type: Reports: Marijuana Substance Use Comment - Amount & Last Used: daily Smoking Status (MU): Light Every Day Tobacco Smoker Type: Cigarettes Amount Used/How Often: 1/2 PPD Length of Time of Smoking/Using Tobacco: age 11 Have You Smoked in the Last Year: Yes Review of Systems Constitutional: Negative Negative: Fever Cardiovascular: Negative Respiratory: Negative Positive: Abdominal Pain Genitourinary: Negative Negative: dysuria, discharge All Other Systems Reviewed And Are Negative: Yes Physical Exam - Physical Exam Triage Information Reviewed: Yes Vital Signs Reviewed: Yes Appearance: Positive: Well-Appearing - Pt. sitting up in bed in NAD. Skin: Positive: Warm, Dry Head/Face: Positive: Normal Head/Face Inspection Eyes: Positive: Normal, EOMI Neck: Positive: Supple Respiratory/Lung Sounds: Positive: Clear to Auscultation, Breath Sounds Present Cardiovascular: Positive: Normal, RRR Abdomen Description: Positive: Nontender, Soft Neurological: Positive: Normal, CN Intact II-III Psychiatric: Positive: Affect/Mood Appropriate Procedures - Sedation Patient Received Moderate/Deep Sedation with Procedure: No Diagnostics - Vital Signs Vital Signs Temp Pulse Resp BP Pulse Ox 07/23/19 14:21 99.3 F 107 16 121/76 98 - Laboratory Lab Statement: Any lab studies that have been ordered have been reviewed, and results considered in the medical decision making process. Course/Dx - Course Course Of Treatment: Pt. presenting for repeat labs. Benign abd. exam. Will repeat betahcg and check u/a. Beta HCG 48 hours ago was 104. No benefit for repeat u/s today. Beta HCG doubled today at 228. U/A negative for infection. Pt. has had no vaginal bleeding. Results discussed. Pt. to schedule f.u with OB. Should have u/s repeated in the 1-2 weeks. Will return for severe abd. pain , bleeding or if concerned. Pt. understands and agrees with plan. - Differential Diagnosis/HQI/PQRI: Spontaneous , Threatened , Ectopic , Early , UTI - Diagnoses Provider Diagnoses: Early stage of Discharge ED - Sign-Out/Discharge Documenting (check all that apply): Patient Departure - Discharge Plan Condition: Good Disposition: HOME Patient Education Materials: (ED) Referrals: Damaris Mayfield MD [Medical Doctor] - Albert Connelly MD [Primary Care Provider] - Additional Instructions: Please call the OB tomorrow to schedule an appointment Will need repeat ultrasound in the next 1-2 weeks Return to ER for vaginal bleeding, severe pain or if concerned - Billing Disposition and Condition Condition: GOOD Disposition: Home
[2019-07-23 15:26] LABS: Urine Appearance Cloudy; Urine Bilirubin Negative (Negative); Urine Blood Negative (Negative); Urine Color Yellow; Urine Glucose Negative (Negative); Urine Ketones Negative (Negative); Urine Nitrite Negative (Negative); Urine Protein Negative (Negative); Urine Specific Gravity 1.017 (1.010-1.030); Urine Urobilinogen Negative (Negative)
== END 2019-07-23 16:10 | disposition home or self-care (01) ==
LOC: ED 14:16
DX: O23.40 Unspecified infection of urinary tract in pregnancy, unspecified trimester (principal); Z3A.00 Weeks of gestation of pregnancy not specified; O99.330 Smoking (tobacco) complicating pregnancy, unspecified trimester; F17.210 Nicotine dependence, cigarettes, uncomplicated; Z79.899 Other long term (current) drug therapy; Z88.1 Allergy status to other antibiotic agents; Z88.8 Allergy status to other drugs, medicaments and biological substances; Z91.040 Latex allergy status
CPT/HCPCS: 36415; 81003; 84702; 99282

== ENCOUNTER 2019-08-07 18:23 | Emergency (ER) | payer OTHER ==
[2019-08-07 18:43] VITALS: BP 136/76
[2019-08-07] MEDS ORDERED: Ondansetron ODT TAB* 4 MG SL ONE (18:57)
--- OUTSIDE RECORDS SUMMARY | 2019-08-07 19:02 | XMS REPORT | Continuity of Care Document ---
:1995 External Reference #:[id number] Author Name Jimbo Claros JR, DO (transmitted by agent of provider Ave [address]) Address [address], [place] [address] Care Team Providers Name Role Phone Albert Connelly M.D. 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 Chair Medicine Problems Description No Information Available Social History Type Date Description Comments Sex Unknown Cigarette Use Current Cigarette Smoker 1/2 Pack Daily ETOH Use Denies alcohol use Recreational Drug Use Denies Drug Use Tobacco Use Start: Unknown Patient is a current smoker, smokes every day Smoking Status Reviewed: 07/31/19 Patient is a current smoker, smokes every day Exercise Type/Frequency Exercises regularly Seat Belt/Car Seat Always uses seat belt Allergies, Adverse Reactions, Alerts Active Allergies Reaction Severity Comments Date Shellfish-Derived Products Wheezing 07/31/2019 Adhesives swelling 07/31/2019 Haloperidol Itching 07/31/2019 Azithromycin Nausea 07/31/2019 Latex swelling 07/31/2019 Medications Active Medications SIG Qnty Indications Ordering Provider Date Doxylamine take 2 tabs and 120tabs Jimbo Claros JR, 07/31/2019 Succinate/Pyridoxine bedtime, may DO Hydrochloride also take one 10-10mg in the am and Tablets DR one in the afternoon. Folic Acid Take one tablet 30tabs Jimbo Claros JR, 07/31/2019 1mg Tablets daily. DO Guanfacine HCL 1 po qhs Unknown 1mg Tablets Divalproex Sodium 1 po qd Unknown 500mg Tablets Citalopram 1 by mouth Unknown Hydrobromide every day 20mg Tablets Promethazine HCL 1 tab by mouth Unknown 25mg every 4-6 hours Tablets prn Klonopin 1 po bid prn Unknown 1mg Tablets History Medications Folic Acid Take one capsule 30caps Jimbo Claros JR, 07/31/2019 - 5mg daily. DO 07/31/2019 Capsules Medications Administered in Office Medication SIG Qnty Indications Ordering Provider Date PT SCRN Tbco Id as Non User Jimbo Claros JR, DO 07/31/2019 Injection Immunizations Description No Information Available Vital Signs Date Vital Result Comment 07/31/2019 11:07am BP Systolic 126 mmHg BP Diastolic 80 mmHg Height 64 inches 5'4" Weight 133.00 lb BMI (Body Mass Index) 22.8 kg/m2 Last Menstrual Period 4729454 3 Parity 2 Results Test Acquired Date Facility Test Result H/L Range Note Laboratory test 07/31/2019 [facility] HCG 6627.00 [address] [place] [address] mIU/mL [phone] 1 <5.0 Negative 5.0 - 25.0 Indeterminate (Repeat testing recommended after 72 hours) >25.0 Positive Perimenopausal women can display HCG levels of up to 20 mIU/mL Procedures Description No Information Available Medical Devices Description No Information Available Encounters Type Date Location Provider Dx Diagnosis Office Visit 07/31/2019 [facility] Jimbo Claros JR, O36.80x0 w 11:00a DO inconclusive viability, unsp Assessments Date Code Description Provider 07/31/2019 O36.80x0 with inconclusive viability, Jimbo Claros JR, DO not applicable or unspecified Plan of Treatment Future Appointment(s):08/07/2019 11:30 am - Ultrasounds at [facility]2019 11:45 am - Nelson Granados MD at [facility] Functional Status Description No Information Available Mental Status Description No Information Available Referrals Description No Information Available
--- OUTSIDE RECORDS SUMMARY | 2019-08-07 19:02 | XMS REPORT | Continuity of Care Document ---
:1995 External Reference #:[id number] Author Name Jimbo Claros JR, DO (transmitted by agent of provider Gabriela Nino) Address [address], [place] [address] Care Team Providers Name Role Phone Albert Connelly M.D. 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 Medicine Problems Description No Information Available Social [...] Sodium 1 po qd Unknown 500mg Tablets DR Citalopram 1 by mouth Unknown Hydrobromide every [...] Mass Index) 22.8 kg/m2 Last Menstrual Period [id number] 3 Parity 2 Results Test Acquired Date Facility Test Result H/L Range Note Laboratory test 07/31/2019 [facility] HCG <pending> [place] [address] [phone] Procedures Description No Information Available Medical Devices Description No Information Available Encounters Type Date Location Provider Dx Diagnosis Office Visit 07/31/2019 [facility] Jimbo Claros JR, O36.80x0 w 11:00a DO inconclusive viability, unsp Assessments Date Code Description Provider 07/31/2019 O36.80x0 with inconclusive viability, Jimbo Claros JR, DO not applicable or unspecified Plan of Treatment Future Appointment(s):08/07/2019 11:30 am - Ultrasounds at [facility]2019 11:45 am - Nelson Granados MD at [facility] Functional Status Description No Information Available Mental Status Description No Information Available Referrals Description No Information Available
--- NOTE | 2019-08-07 19:14 | UC ---
Nausea/Vomiting/Diarrhea HPI - HPI Summary HPI Summary: 24-year-old female with nausea and vomiting over the past 24 hours. She is approximately 6-1/2 weeks gestation with her third . She went to [place] emergency room last evening for the same and was given IV fluids. She states she has smoked marijuana the past 2 days for nausea but that hasn't helped and then her vomiting started yesterday. She had a transvaginal sonogram done in the beginning of July which showed no gestational sac or pole. Her quantitative hCG at that time was 6627. She stopped all of her medications per her primary care provider however was told by her [employer] provider that she can start all of them stopped the Depakote. She has not yet started them. She was told by the emergency department she had a urinary tract infection however when she went to the pharmacy she states she was unable to afford her medication and therefore did not fill the prescription. We were unable to locate any antibiotics sent to the pharmacy from [place] emergency room. She denies any spotting or vaginal bleeding no abnormal vaginal discharge. She does have some abdominal cramping which she has had throughout this entire so far. - History of Current Complaint Chief Complaint: UCGeneralIllness Stated Complaint: VOMITING Time Seen by Provider: 08/07/19 18:26 Hx Obtained From: Patient Hx Last Menstrual Period: 04/29/19 ?: Yes Onset/Duration: Gradual Onset, Other - The patient has had nausea throughout her but has been vomiting the last 2 days. She did smoke marijuana today and the day before to ease the nausea however she started vomiting the past 24 hours. She states occasionally she has fever and sweats. Severity Initially: Mild Severity Currently: Moderate Pain Intensity: 9 Location: Diffuse Character: Cramping Aggravating Factor(s): Nothing Alleviating Factor(s): Nothing Nausea/Vomiting Presence: Nauseated, Vomiting Vomiting Frequency: Every 15-60 minutes Nausea/Vomiting Duration: patient has had nausea throughout her however the vomiting started over the past 2 days more frequently. Vomiting Characteristics: Retching Diarrhea Presence: No - Allergies/Home Medications Allergies/Adverse Reactions: Allergies Allergy/AdvReac Type Severity Reaction Status Date / Time Adhesive Tape Allergy Intermediate SKIN SWELLS Verified 08/07/19 18:32 azithromycin Allergy Vomiting Verified 08/07/19 18:32 haloperidol [From Haldol] Allergy Itching Verified 08/07/19 18:32 latex Allergy Swelling Verified 08/07/19 18:32 shellfish derived Allergy Wheezing Verified 08/07/19 18:32 Home Medications: Home Medications guanFACINE TAB* [Tenex TAB*] 1 mg PO BEDTIME 07/27/18 [History Confirmed ] Divalproex ER TAB(*) [Depakote ER TAB(*)] 500 mg PO DAILY 02/22/19 [History Confirmed 08/07/19] Citalopram TAB* [CeleXA TAB*] 20 mg PO DAILY 05/13/19 [History Confirmed ] Promethazine 25 mg TAB [Phenergan 25 mg TAB] 25 mg PO Q6H PRN 5 Days #20 tab 10/03 [Rx Confirmed 08/07/19] clonazePAM TAB(*) [KlonoPIN TAB(*)] 0.25 mg PO BID 07/21/19 [History Confirmed 08/07/19] clonazePAM TAB(*) [KlonoPIN TAB(*)] 0.5 mg PO QAM 07/21/19 [History Confirmed ] Ondansetron TAB* [Zofran 4 MG Tab*] 4 mg PO Q8H PRN #10 tab 08/07/19 [Rx] PMH/Surg Hx/FS Hx/Imm Hx Previously Healthy: Yes Respiratory History: Asthma - Surgical History Surgical History: Yes Surgery Procedure, Year, and Place: 15 GI bx r/t c.diff - Family History Known Family History: Positive: Unknown, Non-Contributory - Social History Lives: With Family - Patient has a 5 and 7-year-old at home Alcohol Use: None Substance Use Type: Marijuana Substance Use Comment - Amount & Last Used: daily Smoking Status (MU): Light Every Day Tobacco Smoker Type: Cigarettes Amount Used/How Often: 1/2 PPD Length of Time of Smoking/Using Tobacco: age 11 Have You Smoked in the Last Year: Yes Household Exposure Type: Cigarettes - Immunization History Most Recent Influenza Vaccination: none Most Recent Tetanus Shot: AGE 19 Review of Systems All Other Systems Reviewed And Are Negative: Yes Constitutional: Positive: Fever - States occasionally she has fever and sweats. Gastrointestinal: Positive: Abdominal Pain - Patient complains of abdominal cramping which she has had over the past month. She denies any vaginal discharge or bleeding., Vomiting, Nausea Genitourinary: Positive: Dysuria Psychological: Positive: Anxious Is Patient Immunocompromised?: No Physical Exam Triage Information Reviewed: Yes Appearance: Well-Appearing, No Pain Distress, Well-Nourished Vital Signs: Initial Vital Signs Temp 97.8 F 08/07/19 18:28 Pulse 70 08/07/19 18:28 Resp 21 08/07/19 18:28 BP 128/82 08/07/19 18:28 Pulse Ox 99 08/07/19 18:28 Vital Signs Reviewed: Yes Eyes: Positive: Conjunctiva Clear ENT: Positive: Pharynx normal, TMs normal, Uvula midline Neck: Positive: Supple, Nontender, No Lymphadenopathy Respiratory: Positive: Lungs clear, Normal breath sounds, No respiratory distress, No accessory muscle use Cardiovascular: Positive: RRR, No Murmur, Pulses Normal, Brisk Capillary Refill Abdomen Description: Positive: No Organomegaly, Soft. Negative: CVA Tenderness (R), CVA Tenderness (L), Distended, Guarding, Hepatomegaly, Splenomegaly Bowel Sounds: Positive: Present Musculoskeletal Exam: Normal Neurological Exam: Normal Psychological: Positive: Other: - Patient is teary-eyed at times. She had stopped her medication over the past one and half weeks. She is very anxious. At one point she stated she's not sure if she wants to continue with the . Naus/Vom/Diarrhea Course/Dx - Course Course Of Treatment: The patient was given Zofran 4 mg sublingual here. She is not presently orthostatic. The Zofran resolved her vomiting. Urinalysis: Negative Although I gave her a prescription for Zofran I did advise her that she can return back to the antinausea medicine given by her primary care provider. She is to go home and rest, increase fluids and restart her medications except the Depakote. She then advise me she had an [employer] appointment this morning which she missed because her car was in the emergency room in [place] and today she was supposed to get a sonogram. I advised her to call her CR[employer]CH MAKER office tomorrow and rescheduled that to Sunday or Sunday and by then they will also have the results of the quantitative hCG. The patient is stable and much calmer no longer teary-eyed. She does not have a mental health provider however her [employer] physician referred her to [facility]. She is going to call them and make an appointment. - Differential Dx/Diagnosis Provider Diagnosis: Nausea & vomiting Is Visit Related: Yes - Possibly Condition At Discharge: Good Discharge ED - Sign-Out/Discharge Documenting (check all that apply): Patient Departure All imaging exams completed and their final reports reviewed: No Studies - Discharge Plan Condition: Good Disposition: HOME Prescriptions: Ondansetron TAB* [Zofran 4 MG Tab*] 4 mg PO Q8H PRN #10 tab PRN Reason: Nausea Patient Education Materials: Hyperemesis Gravidarum (ED) Referrals: Albert Connelly MD [Primary Care Provider] - Additional Instructions: Increase fluids, start all of your medications except the Depakote. You can start your other anti-nausea medicine tonight. Do not take the Zofran and the other anti-nausea medicine. It is better to take the medicine for nausea your doctor gave you because of the side effects of the Zofran with the medications you will be re-starting. Stop smoking marijuana. Call your [employer] office tomorrow and rescheduled the sonogram for Sunday or Sunday. The blood work should be back by then with the results. - Billing Disposition and Condition Condition: GOOD Disposition: Home
--- NOTE | 2019-08-08 16:25 | UC ---
- Progress Note Progress Note: Please call to advise that her HCG continues to rise, consistent with a viable . She was seen last night with nausea and vomiting, and was given ondansetron. This helped significantly. She was given an rx--might not have been covered by her insurance, but she was advised to follow up with OB as soon as possible. Please call to check in. Course/Dx - Diagnoses Provider Diagnoses: Nausea & vomiting Is Visit Related: Yes - Possibly Discharge ED - Sign-Out/Discharge Documenting (check all that apply): Post-Discharge Follow Up All imaging exams completed and their final reports reviewed: No Studies - Discharge Plan Condition: Good Disposition: HOME Prescriptions: Ondansetron TAB* [Zofran 4 MG Tab*] 4 mg PO Q8H PRN #10 tab PRN Reason: Nausea Patient Education Materials: Hyperemesis Gravidarum (ED) Referrals: Albert Connelly MD [Primary Care Provider] - Additional Instructions: Increase fluids, start all of your medications except the Depakote. You can start your other anti-nausea medicine tonight. Do not take the Zofran and the other anti-nausea medicine. It is better to take the medicine for nausea your doctor gave you because of the side effects of the Zofran with the medications you will be re-starting. Stop smoking marijuana. Call your [employer] office tomorrow and rescheduled the sonogram for Sunday or Sunday. The blood work should be back by then with the results. - Billing Disposition and Condition Condition: GOOD Disposition: Home
== END 2019-08-07 19:48 | disposition home or self-care (01) ==
LOC: UCCORT 18:23
DX: O21.0 Mild hyperemesis gravidarum (principal); Z3A.01 Less than 8 weeks gestation of pregnancy; Z88.1 Allergy status to other antibiotic agents; Z91.040 Latex allergy status; Z91.013 Allergy to seafood; Z88.8 Allergy status to other drugs, medicaments and biological substances; Z91.048 Other nonmedicinal substance allergy status; F17.210 Nicotine dependence, cigarettes, uncomplicated
CPT/HCPCS: 36415; 81003; 84702; 99212; A9270-GY; G0463

== ENCOUNTER 2019-11-01 16:30 | Inpatient (IN) ==
[2019-11-01 17:46] LABS: ABS Monocytes 0.8 10^3/ul (0-0.8); Eosinophil % 0.5 %; Hematocrit 37 % (35-47); Hemoglobin 12.6 g/dL (12.0-16.0); Lymphocyte % 22.5 %; Mean Corpuscular HGB Conc 34 g/dL (31-36); Mean Corpuscular Hemoglobin 31 pg (27-31); Mean Corpuscular Volume 90 fL (80-97); Mean Platelet Volume 8.4 fL (7.4-10.4); Platelet Count 250 10^3/uL (150-450); Red Blood Count 4.07 10^6 /uL (3.70-4.87); Red Cell Distribution Width 13 % (10-15); White Blood Count 8.7 10^3/uL (3.5-10.8)
[2019-11-01 18:01] LABS: ALT 12 U/L (7-52); AST 17 U/L (13-39); Albumin 3.7 g/dL (3.2-5.2); Albumin/Globulin Ratio 1.5 (1-3); Alkaline Phosphatase 56 U/L (34-104); Anion Gap 5 mmol/L (2-11); BUN/Creatinine Ratio 10.4 (8-20); Blood Urea Nitrogen 5 mg/dL (6-24); CO2 Carbon Dioxide 24 mmol/L (22-32); Chloride 107 mmol/L (101-111); EGFR African American 189.2 (>60); EGFR Non-African American 156.3 (>60); Globulin 2.5 g/dL (2-4); Glucose 69 mg/dL (70-100); Potassium 3.8 mmol/L (3.5-5.0); Sodium 136 mmol/L (135-145); Total Protein 6.2 g/dL (6.4-8.9)
[2019-11-01 18:07] LABS: Urine Appearance Clear; Urine Bilirubin Negative (Negative); Urine Blood Negative (Negative); Urine Color Yellow; Urine Glucose Negative (Negative); Urine Ketones Trace (Negative); Urine Nitrite Negative (Negative); Urine Protein Negative (Negative); Urine Specific Gravity 1.008 (1.010-1.030); Urine Urobilinogen Negative (Negative)
[2019-11-01 18:13] LABS: Acetaminophen < 15 mcg/mL; Alcohol, S < 10 mg/dL (<10); Salicylate < 2.50 mg/dL (<30)
[2019-11-01 18:16] LABS: Urine Benzodiazepine Screen None Detected (None Detect); Urine Opiates Screen None Detected (None Detect)
[2019-11-01] MEDS: Nicotine GUM 2MG FRUIT FLAVOR PO PRN (19:13)
[2019-11-01 19:21] LABS: TSH (Thyroid Stimulating Horm) 0.73 mcIU/mL (0.34-5.60)
[2019-11-02] MEDS ORDERED: Al Hydrox/Mg Hydrox/Simet LIQ 30 ML UDC PO PRN (00:56)
[2019-11-02] MEDS: GUANFACINE 1 MG PO SCH ×3 (01:40→20:35)
[2019-11-02] MEDS: Ondansetron ODT 4 mg TAB 4 MG TAB PO PRN ×2 (08:18→17:12)
[2019-11-02] MEDS: Nicotine GUM 2MG FRUIT FLAVOR PO PRN ×3 (08:22→19:23)
[2019-11-02] MEDS: Vitamin THERAPEUTIC TAB PO SCH (09:41)
[2019-11-02] MEDS: Divalproex ER 500 mg TAB (*) PO SCH (16:25)
[2019-11-03] MEDS: Nicotine GUM 2MG FRUIT FLAVOR PO PRN (06:36)
[2019-11-03 06:53] LABS: HDL Cholesterol 50.2 mg/dL
[2019-11-03] MEDS: GUANFACINE 1 MG PO SCH (10:09)
[2019-11-03] MEDS: Divalproex ER 500 mg TAB (*) PO SCH (10:10)
[2019-11-03] MEDS: Vitamin THERAPEUTIC TAB PO SCH (11:23)
[2019-11-03 12:20] VITALS: BP 98/59
== END 2019-11-03 14:15 | disposition home or self-care (01) | DRG 955 ==
LOC: ED 16:30 → BSU 23:50
PROVIDERS: ADMIT Psychiatry & Neurology Psychiatry; ATTEND Psychiatry & Neurology Psychiatry

== ENCOUNTER 2019-12-05 15:34 | Inpatient (IN) ==
[2019-12-05] MEDS ORDERED: LORazepam 2 mg VIAL 1 ml IV ONE (16:03)
[2019-12-05] MEDS ORDERED: NS 0.9% 1000 ml BAG 1,000 ML IV ONE (16:03)
[2019-12-05] MEDS ORDERED: Lorazepam PYXIS KEY PRN (16:03)
[2019-12-05] MEDS ORDERED: Metoclopramide 5 MG/ML VIAL (10 mg) IV ONE ×2 (17:57→20:43)
[2019-12-05] MEDS ORDERED: Ondansetron 4 mg VIAL 2 MG/ML 2 ml VIAL IV ONE (17:57)
[2019-12-05 18:29] LABS: Hematocrit 37 % (35-47); Hemoglobin 12.9 g/dL (12.0-16.0); Mean Corpuscular HGB Conc 35 g/dL (31-36); Mean Corpuscular Hemoglobin 31 pg (27-31); Mean Corpuscular Volume 88 fL (80-97); Mean Platelet Volume 8.7 fL (7.4-10.4); Platelet Count 242 10^3/uL (150-450); Red Blood Count 4.24 10^6 /uL (3.70-4.87); Red Cell Distribution Width 13 % (10-15); White Blood Count 15.2 10^3/uL (3.5-10.8)
[2019-12-05 18:31] LABS: ABS Basophils 0.1 10^3/ul (0-0.2); ABS Lymphocytes 1.1 10^3/ul (1.0-4.8); ABS Monocytes 0.5 10^3/ul (0-0.8); ABS Neutrophils 13.6 10^3/ul (1.5-7.7); Eosinophil % 0.1 %
[2019-12-05 18:46] LABS: ALT 5 U/L (7-52); AST 8 U/L (13-39); Albumin 2.8 g/dL (3.2-5.2); Albumin/Globulin Ratio 1.3 (1-3); Alkaline Phosphatase 49 U/L (34-104); Blood Urea Nitrogen 7 mg/dL (6-24); CO2 Carbon Dioxide 18 mmol/L (22-32); EGFR African American 325.4 (>60); EGFR Non-African American 268.9 (>60); Globulin 2.1 g/dL (2-4); Glucose 119 mg/dL (70-100); Sodium 141 mmol/L (135-145); Total Protein 4.9 g/dL (6.4-8.9)
[2019-12-05 18:49] LABS: Anion Gap 7 mmol/L (2-11); Calcium 6.2 mg/dL (8.6-10.3); Chloride 116 mmol/L (101-111); Potassium 2.5 mmol/L (3.5-5.0)
[2019-12-05] MEDS ORDERED: Calcium Gluconate 2 GM in NS 0.9% 100 ml BAG 100 ML IVPB ONE (20:32)
[2019-12-05 21:08] LABS: Magnesium 1.2 mg/dL (1.9-2.7)
[2019-12-05] MEDS: KCL 20 MEQ/100 ML IVPREMIX 20 MEQ/100 ML BAG IV SCH (21:37)
[2019-12-05] MEDS ORDERED: Magnesium Sulf 4 GM/100 ML IV 4,000 MG/100 ML BAG IVPB ONE (21:57)
[2019-12-05 22:52] LABS: Urine Appearance Turbid; Urine Bilirubin Negative (Negative); Urine Blood Negative (Negative); Urine Color Yellow; Urine Glucose Negative (Negative); Urine Ketones 2+ (Negative); Urine Nitrite Negative (Negative); Urine Protein 1+(30 mg/dL) (Negative); Urine Specific Gravity 1.014 (1.010-1.030); Urine Urobilinogen Negative (Negative)
[2019-12-05 22:58] LABS: Urine Bacteria 1+ (Absent); Urine Red Blood Cell Trace(0-2/hpf) (Absent); Urine Squamous Epithelial Cell Present (Absent); Urine White Blood Cell Trace(0-5/hpf) (Absent)
[2019-12-05 23:06] LABS: Urine Creatinine Concentration 97.57 mg/dL; Urine Potassium Concentration 135.4 mmol/L
[2019-12-05] MEDS ORDERED: Lactated Ringers 1000 ml BAG 1,000 ML IV SCH (23:45)
[2019-12-06] MEDS: Ondansetron 4 mg VIAL 2 MG/ML 2 ml VIAL IV PRN ×4 (01:08→20:53)
[2019-12-06] MEDS: Nicotine PATCH 7 MG/24 HR PATCH TRANSDERM SCH ×2 (01:09→07:43)
[2019-12-06] MEDS: KCL 20 MEQ/100 ML IVPREMIX 20 MEQ/100 ML BAG IV SCH (02:50)
[2019-12-06] MEDS: Metoclopramide 5 MG/ML VIAL (10 mg) IV SLOW PU PRN ×2 (04:28→13:19)
[2019-12-06] MEDS: Potassium Chloride IV 40 MEQ in Lactated Ringers 1000 ml BAG 1,000 ML IVPB SCH ×2 (06:16→13:24)
[2019-12-06 06:59] LABS: ABS Lymphocytes 1.3 10^3/ul (1.0-4.8); ABS Neutrophils 12.8 10^3/ul (1.5-7.7); Eosinophil % 0.1 %; Hematocrit 33 % (35-47); Hemoglobin 11.6 g/dL (12.0-16.0); Lymphocyte % 8.6 %; Mean Corpuscular HGB Conc 35 g/dL (31-36); Mean Corpuscular Hemoglobin 31 pg (27-31); Mean Corpuscular Volume 88 fL (80-97); Mean Platelet Volume 9.1 fL (7.4-10.4); Platelet Count 254 10^3/uL (150-450); Red Blood Count 3.76 10^6 /uL (3.70-4.87); Red Cell Distribution Width 13 % (10-15); White Blood Count 15.1 10^3/uL (3.5-10.8)
[2019-12-06 07:14] LABS: BUN/Creatinine Ratio 15.4 (8-20); Calcium 8.5 mg/dL (8.6-10.3); EGFR African American 240.4 (>60); EGFR Non-African American 198.7 (>60); Magnesium 2.1 mg/dL (1.9-2.7); Potassium 3.4 mmol/L (3.5-5.0)
[2019-12-06] MEDS ORDERED: LORazepam 2 mg VIAL 1 ml IV PUSH ONE (08:30)
[2019-12-06] MEDS ORDERED: Lorazepam PYXIS KEY PRN (08:30)
[2019-12-06] MEDS ORDERED: GUANFACINE 1 MG PO SCH (09:00)
[2019-12-06] MEDS: Nicotine GUM 2MG FRUIT FLAVOR PO PRN ×2 (11:00→16:13)
[2019-12-06] MEDS: Pyridoxine INJ 100 MG/ML VIAL IV SCH ×2 (13:18→20:49)
[2019-12-06 23:10] LABS: BUN/Creatinine Ratio 6.7 (8-20); Calcium 8.6 mg/dL (8.6-10.3); EGFR African American 203.8 (>60); EGFR Non-African American 168.4 (>60); Potassium 3.7 mmol/L (3.5-5.0)
[2019-12-07] MEDS: Pyridoxine INJ 100 MG/ML VIAL IV SCH ×2 (05:27→12:35)
[2019-12-07] MEDS: Ondansetron 4 mg VIAL 2 MG/ML 2 ml VIAL IV PRN ×2 (05:31→11:33)
[2019-12-07 07:15] LABS: ABS Eosinophils 0.1 10^3/ul (0-0.6); ABS Lymphocytes 2.8 10^3/ul (1.0-4.8); Hematocrit 35 % (35-47); Hemoglobin 12.4 g/dL (12.0-16.0); Lymphocyte % 28.3 %; Mean Corpuscular HGB Conc 36 g/dL (31-36); Mean Corpuscular Hemoglobin 31 pg (27-31); Mean Corpuscular Volume 88 fL (80-97); Mean Platelet Volume 8.7 fL (7.4-10.4); Platelet Count 258 10^3/uL (150-450); Red Blood Count 3.97 10^6 /uL (3.70-4.87); Red Cell Distribution Width 14 % (10-15)
[2019-12-07] MEDS: Metoclopramide 5 MG/ML VIAL (10 mg) IV SLOW PU PRN (07:25)
[2019-12-07 07:38] LABS: BUN/Creatinine Ratio 9.8 (8-20); Calcium 8.8 mg/dL (8.6-10.3); EGFR African American 176.4 (>60); EGFR Non-African American 145.8 (>60); Potassium 3.5 mmol/L (3.5-5.0)
[2019-12-07] MEDS ORDERED: LORazepam 2 mg VIAL 1 ml IV PUSH ONE (09:05)
[2019-12-07] MEDS ORDERED: Lorazepam PYXIS KEY PRN ×2 (09:05→09:45)
[2019-12-07] MEDS ORDERED: Benzocaine/Menthol LOZ PO PRN (09:07)
[2019-12-07] MEDS ORDERED: LORazepam 2 mg VIAL 1 ml IV PUSH PRN (09:45)
[2019-12-07] MEDS ORDERED: Metoclopramide 5 MG/ML VIAL (10 mg) IV SLOW PU PRN (09:46)
[2019-12-07 16:30] VITALS: BP 116/54
[2019-12-07 17:37] LABS: TSH Ultra Thyroid Stim Horm 1.41 mcIU/mL (0.34-5.60)
== END 2019-12-07 17:30 | disposition home or self-care (01) | DRG 566 ==
LOC: MEDTELE 15:34 → ED 15:34 → MEDTELE 12-06 00:48
PROVIDERS: ADMIT Internal Medicine; ATTEND Hospitalist

== ENCOUNTER 2020-01-01 11:52 | Observation (INO) ==
[2020-01-01] MEDS ORDERED: NS 0.9% 1000 ml BAG 1,000 ML IV ONE ×3 (11:57→17:37)
[2020-01-01] MEDS ORDERED: Metoclopramide 5 MG/ML VIAL (10 mg) IV SLOW PU ONE (11:57)
[2020-01-01 12:56] LABS: ABS Lymphocytes 1.3 10^3/ul (1.0-4.8); ABS Monocytes 0.8 10^3/ul (0-0.8); ABS Neutrophils 9.5 10^3/ul (1.5-7.7); Eosinophil % 0.4 %; Hematocrit 38 % (35-47); Hemoglobin 12.7 g/dL (12.0-16.0); Lymphocyte % 11.2 %; Mean Corpuscular HGB Conc 34 g/dL (31-36); Mean Corpuscular Hemoglobin 29 pg (27-31); Mean Corpuscular Volume 87 fL (80-97); Mean Platelet Volume 8.4 fL (7.4-10.4); Platelet Count 272 10^3/uL (150-450); Red Blood Count 4.36 10^6 /uL (3.70-4.87); Red Cell Distribution Width 13 % (10-15); White Blood Count 11.6 10^3/uL (3.5-10.8)
[2020-01-01 13:24] LABS: Albumin 3.8 g/dL (3.2-5.2); Albumin/Globulin Ratio 1.3 (1-3); BUN/Creatinine Ratio 11.1 (8-20); Calcium 8.8 mg/dL (8.6-10.3); EGFR African American 203.8 (>60); EGFR Non-African American 168.4 (>60); Globulin 2.9 g/dL (2-4); Magnesium 1.7 mg/dL (1.9-2.7); Potassium 3.3 mmol/L (3.5-5.0); Total Bilirubin 0.5 mg/dL (0.2-1.0); Total Protein 6.7 g/dL (6.4-8.9)
[2020-01-01] MEDS ORDERED: diPHENhydraMINE IV 50 MG/ML 1 ml VIAL (BENADRYL) IV ONE (13:26)
[2020-01-01] MEDS ORDERED: Magnesium Sulfate 2 gm BAG 2 GM/50 ML BAG IVPB ONE (13:27)
[2020-01-01] MEDS ORDERED: Ondansetron 4 mg VIAL 2 MG/ML 2 ml VIAL IV ONE (14:53)
[2020-01-01] MEDS ORDERED: Prochlorperazine 5 mg/ml 2 ml VIAL (10 mg) IV ONE (16:03)
[2020-01-01 19:35] LABS: Urine Appearance Clear; Urine Bilirubin Negative (Negative); Urine Blood Negative (Negative); Urine Color Straw; Urine Glucose 1+(50 mg/dL) (Negative); Urine Ketones 2+ (Negative); Urine Nitrite Negative (Negative); Urine Protein Negative (Negative); Urine Urobilinogen Negative (Negative)
[2020-01-01] MEDS ORDERED: Lactated Ringers 1000 ml BAG 1,000 ML IV SCH (20:00)
[2020-01-01] MEDS ORDERED: Ondansetron ODT 4 mg TAB 4 MG TAB PO PRN (20:22)
[2020-01-01 20:56] LABS: Urine Benzodiazepine Screen None Detected (None Detect); Urine Cannabinoids Screen Presumptive Positive (None Detect); Urine Opiates Screen None Detected (None Detect)
[2020-01-01] MEDS ORDERED: PYRIDOXINE PO SCH (21:00)
[2020-01-01] MEDS ORDERED: DOXYLAMINE PO SCH (21:00)
[2020-01-01] MEDS ORDERED: [UNRECOGNIZED DRUG - OTHER] PO SCH (21:00)
[2020-01-01] MEDS ORDERED: DOXYLAMINE SUCCINATE10 PO SCH (21:00)
[2020-01-01 22:26] VITALS: BP 110/62
== END 2020-01-02 00:58 | disposition home or self-care (01) ==
LOC: ED 11:52 → MED 11:52
PROVIDERS: ADMIT Obstetrics & Gynecology; ATTEND Obstetrics & Gynecology

== ENCOUNTER 2020-01-03 16:14 | Observation (INO) ==
[2020-01-03] MEDS ORDERED: Ondansetron 4 mg VIAL 2 MG/ML 2 ml VIAL ONE (16:37)
[2020-01-03] MEDS ORDERED: Ondansetron 4 mg VIAL 2 MG/ML 2 ml VIAL IV PRN ×2 (16:48→21:09)
[2020-01-03 17:17] LABS: ABS Lymphocytes 1.2 10^3/ul (1.0-4.8); ABS Monocytes 0.6 10^3/ul (0-0.8); ABS Neutrophils 10.6 10^3/ul (1.5-7.7); Hematocrit 39 % (35-47); Hemoglobin 12.9 g/dL (12.0-16.0); Lymphocyte % 9.5 %; Mean Corpuscular HGB Conc 34 g/dL (31-36); Mean Corpuscular Hemoglobin 29 pg (27-31); Mean Corpuscular Volume 87 fL (80-97); Mean Platelet Volume 9.3 fL (7.4-10.4); Platelet Count 337 10^3/uL (150-450); Red Blood Count 4.44 10^6 /uL (3.70-4.87); Red Cell Distribution Width 14 % (10-15); White Blood Count 12.4 10^3/uL (3.5-10.8)
[2020-01-03 17:29] LABS: Albumin 4.1 g/dL (3.2-5.2); Albumin/Globulin Ratio 1.3 (1-3); BUN/Creatinine Ratio 12.2 (8-20); EGFR African American 226.9 (>60); EGFR Non-African American 187.5 (>60); Globulin 3.1 g/dL (2-4); Potassium 2.9 mmol/L (3.5-5.0); Total Bilirubin 0.7 mg/dL (0.2-1.0); Total Protein 7.2 g/dL (6.4-8.9)
[2020-01-03] MEDS ORDERED: NS 0.9% w/ 20 Meq KCL 1000 ml 1,000 ML IV SCH (18:00)
[2020-01-03 19:28] LABS: Urine Appearance Clear; Urine Bilirubin Negative (Negative); Urine Blood Negative (Negative); Urine Color Yellow; Urine Glucose 3+(>=500 mg/dL) (Negative); Urine Ketones 2+ (Negative); Urine Nitrite Negative (Negative); Urine Protein Negative (Negative); Urine Specific Gravity 1.024 (1.010-1.030); Urine Urobilinogen Negative (Negative)
[2020-01-03 19:45] LABS: Urine Benzodiazepine Screen None Detected (None Detect); Urine Cannabinoids Screen Presumptive Positive (None Detect); Urine Opiates Screen None Detected (None Detect)
[2020-01-03] MEDS ORDERED: Lactated Ringers 1000 ml BAG 1,000 ML IV ONE (20:43)
[2020-01-03 21:01] LABS: Magnesium 1.7 mg/dL (1.9-2.7)
[2020-01-03] MEDS ORDERED: Magnesium Sulfate 2 gm BAG 2 GM/50 ML BAG IVPB ONE (21:13)
[2020-01-03] MEDS ORDERED: Nicotine GUM 4MG FRUIT FLAVOR PO PRN (21:29)
[2020-01-03] MEDS: KCL 20 MEQ/100 ML IVPREMIX 20 MEQ/100 ML BAG IV SCH (21:38)
[2020-01-04] MEDS: KCL 20 MEQ/100 ML IVPREMIX 20 MEQ/100 ML BAG IV SCH ×3 (01:32→06:05)
[2020-01-04 11:03] VITALS: BP 108/50
[2020-01-04 12:42] LABS: CO2 Carbon Dioxide 19 mmol/L (22-32); Calcium 8.4 mg/dL (8.6-10.3); Chloride 106 mmol/L (101-111); Sodium 135 mmol/L (135-145)
[2020-01-04 12:48] LABS: BUN/Creatinine Ratio 4.4 (8-20); Blood Urea Nitrogen 2 mg/dL (6-24); EGFR African American 203.8 (>60); EGFR Non-African American 168.4 (>60); Glucose 82 mg/dL (70-100)
[2020-01-04 12:52] LABS: Anion Gap 10 mmol/L (2-11)
[2020-01-04] MEDS ORDERED: DOXYLAMINE PO SCH (21:00)
[2020-01-04] MEDS ORDERED: [UNRECOGNIZED DRUG - OTHER] PO SCH (21:00)
[2020-01-04] MEDS ORDERED: DOXYLAMINE SUCCINATE10 PO SCH (21:00)
[2020-01-04] MEDS ORDERED: PYRIDOXINE PO SCH (21:00)
== END 2020-01-04 15:00 | disposition home or self-care (01) ==
LOC: MCHOBOUT 16:14 → MED 16:14
PROVIDERS: ADMIT Internal Medicine; ATTEND Internal Medicine